=== PATIENT | female | born 1965 | race Asian ===

== ENCOUNTER 2025-04-04 21:32 | Inpatient (IN) ==
[2025-04-04 22:20] LABS: Hematocrit (blood only) 35.9 % (37.0-47.0); Hemoglobin 11.9 g/dl (12.0-16.0); Immature Granulocytes # (auto) 0.03 K/uL (0.01-0.20); Immature Granulocytes % (auto) 0.4 %; Mean Corpuscular Hemoglobin 29.5 pg (25.0-34.0); Mean Corpuscular Volume 88.9 fL (80.0-100.0); Platelet Count 115 K/uL (130-400); RDW Standard Deviation 44.0 fL (36.4-46.3); Red Blood Count 4.04 M/uL (4.20-5.40); White Blood Count 6.77 K/ul (4.8-10.8)
--- NOTE | 2025-04-04 22:31 | Emergency Department Note ---
Impression & Plan Abdominal pain, Fever, Mass of cecum, Nausea & vomiting ED Provider Note HISTORY OF PRESENT ILLNESS: Patient is a 59-year-old female presenting with abdominal pain. Patient's son acts as riprap placing supervisor via [employer] video. Attempted to set up formal riprap placing supervisor but was unable to connect to 1 and son felt comfortable translating. Reports that his mother has been having abdominal pain for the last month. She has been taking ibuprofen with little relief in her symptoms. Son reports that in the last week the patient's abdominal pain has gotten significantly worse. Locates the pain to her lower abdomen. She has been having nausea and vomiting. Has also had 2 weeks worth of diarrhea. No reported recent antibiotic use. No fevers at home. She is not had any ibuprofen today. She has never had surgery on her abdomen. She takes no daily medications. No known medication allergies. She is currently rating her pain a 7 out of 10 and locates it to the lower abdomen. Denies any dysuria or hematuria. She describes the abdominal pain as constant and sharp. Denies any alleviating or exacerbating factors. She reportedly has had a decreased appetite secondary to her symptoms in the last month. ROS: as above PHYSICAL EXAM: Constitutional: Patient appears in no acute distress. HENT: Head: Normocephalic and atraumatic. Eyes: EOMI, PERRL Mouth/Throat: Mucous membranes moist. Neck: Trachea midline. Neck supple. Cardiovascular: RRR, No murmurs, rubs or gallops. Intact distal pulses. Pulmonary/Chest: No respiratory distress. Breath sounds clear and equal bilaterally. No wheezes or rales. Abdominal: Abdomen soft, no rebound or guarding. Diffuse TTP Musculoskeletal: No edema, tenderness or deformity noted. Skin: Warm and dry. No rash, erythema, pallor or cyanosis Psychiatric: Appropriate mood and affect for situation. Neurological: Alert and keenly responsive. CN II-XII grossly intact, moving all extremities equally and fully. MDM: - Vitals signs showed fever and tachycardia - History obtained via patient and patient's son, given patient's primary language is Mandarin. History as above. - Chronic conditions affecting care: None - Differential diagnoses include, but are not limited to: Appendicitis; diverticulitis; colitis; bowel obstruction; UTI; ureteral stone - Order placed for continuous cardiac monitoring. At this time, monitor showed rate of 100 bpm with normal sinus rhythm, per my interpretation. - External medical records reviewed. - Laboratory workup interpreted by myself showed normal WBC; anemia (Hgb 11.9); thrombocytopenia (plt 115); elevated INR (1.2); normal lactate; slight hyponatremia (Na 133); hypocalcemia (Ca 8.5); normal lipase; normal AST/ALT - Viral respiratory panel negative - UA negative for infection - Patient given 1L NS, 4 mg IV zofran and 1g IV tylenol in ER. - CT abdomen/pelvis with IV contrast showed diffuse severe right colon wall thickening with surrounding infiltration and a masslike soft tissue density in the medial aspect of the cecum. Noted to have diffuse ascites and extensive abdominal mesenteric and retroperitoneal lymphadenopathy. Findings suspicious for right colon/cecal neoplasm versus severe colitis. Appendix was visualized and without acute appendicitis. - Given patient's fever and unknown source, procalcitonin and blood cultures added to workup - Discussed results with patient, her son via telephone and the formal [employer] riprap placing supervisor via iPad. Discussed the CT findings with the patient. She reports her last colonoscopy was over a decade ago in [place] and did not show any acute abnormalities. She reports her nausea is slightly improved but she is still feeling nauseous and her pain though slightly improved is still present. - IV zosyn added for empiric antibiotic therapy - General surgery consulted. Recommended GI consultation - Discussion was had with case resource manager about patient's case and need for admission - Hospitalist, Dr. Hummel, consulted for admission at 00:36. - Patient admitted to [facility] service for further evaluation and management. ASSESSMENT AND PLAN: Diagnosis: Abdominal pain; nausea and vomiting; fever; mass of cecum Plan: admit Past Med/Surg History Problem List (Updated 04/05/25 @ 00:37 by Payton Sullivan MD) Nausea & vomiting (Acute) Mass of cecum (Acute) Fever (Acute) Abdominal pain (Acute) Social History Smoking Status: Never smoker Preferred Language: Mandarin [place] African Communication Tools: IPad Feels Safe at Home: Yes Allergies Allergies Allergy/AdvReac Type Severity Reaction Status Date / Time No Known Allergies Allergy Unverified 04/04/25 22:40 Results & Data (ED) Vital Signs Vital Signs - 24 hr 04/04/25 21:38 04/04/25 21:50 04/04/25 21:56 Temperature 37.9 C H Temperature Source Oral Pulse Rate 100 H 100 H Pulse Rate [Apical] 96 H Pulse Rhythm [Apical] Regular Pulse Strength [Apical] Normal Respiratory Rate 18 16 Respiratory Effort / Characteristics Non-Labored Spontaneous Non-Labored Respiratory Depth Normal Normal Respiratory Pattern Regular Regular Blood Pressure 118/80 Blood Pressure Mean 92 Blood Pressure Position Sitting Blood Pressure Position [Right Arm] Lying Pulse Oximetry 97 97 Oxygen Delivery Method Room Air Room Air Sepsis Recent Fever Within 48 Hours Yes Sepsis New/Unexplained Change in Mental Status N/A Sepsis Action Taken by Nursing No Action Required Laboratory Data 04/04/25 22:03 04/04/25 22:03 Lab Results 04/04/25 04/04/25 04/04/25 Range/Units 21:49 22:03 22:47 WBC 6.77 (4.8-10.8) K/ul RBC 4.04 L (4.20-5.40) M/uL Hgb 11.9 L (12.0-16.0) g/dl Hct 35.9 L (37.0-47.0) % MCV 88.9 (80.0-100.0) fL MCH 29.5 (25.0-34.0) pg MCHC 33.1 (32.0-36.0) g/dL RDW Std Deviation 44.0 (36.4-46.3) fL RDW Coeff of Albertina 13.5 (11.5-14.5) % Plt Count 115 L (130-400) K/uL MPV 10.0 (9.4-12.4) fL Immature Gran % (Auto) 0.4 % Neut % (Auto) 64.6 % Lymph % (Auto) 15.5 % [place] % (Auto) 19.1 % Eos % (Auto) 0.1 % Baso % (Auto) 0.3 % Neut # (Auto) 4.37 (1.40-6.50) K/uL Lymph # (Auto) 1.05 L (1.20-3.40) K/uL [place] # (Auto) 1.29 H (0.11-0.59) K/uL Eos # (Auto) 0.01 (0.00-0.50) K/uL Baso # (Auto) 0.02 (0.00-0.20) K/uL Immature Gran # (Auto) 0.03 (0.01-0.20) K/uL PT 12.2 H (9.0-12.0) Seconds INR 1.2 H (0.9-1.1) Sodium 133 L (136-145) mmol/L Potassium 4.0 (3.5-5.1) mmol/L Chloride 103 (98-107) mmol/L Carbon Dioxide 21 (21-32) mmol/L Anion Gap 9 (3-11) BUN 15 (6-23) mg/dl Creatinine 0.73 (0.6-1.2) mg/dl Est Cr Clr Drug Dosing 69.5 ml/min eGFR 95.27 BUN/Creatinine Ratio 20.5 H (10-20) Glucose 133 H (70-99(Fasting)) mg/dl Lactate 1.4 (0.4-2.0) mmol/L Calcium 8.5 L (8.6-10.3) mg/dl Total Bilirubin 0.6 (0.2-1.0) mg/dl AST 34 (13-39) U/L ALT 17 (7-52) U/L Alkaline Phosphatase 65 (34-104) U/L Total Protein 6.5 (6.0-8.3) gm/dl Albumin 3.6 (3.4-5.0) gm/dl Globulin 2.9 (2.5-4.0) gm/dl Albumin/Globulin Ratio 1.2 (0.9-2) Lipase 10 L (11-82) U/L Urine Color Yellow Urine Appearance Clear (Clear) Urine pH 7.0 (4.5-7.5) Ur Specific [place] 1.020 (1.000-1.030) Urine Protein 1+ H (Negative) Urine Glucose (UA) Negative (Negative) Urine Ketones 1+ H (Negative) Urine Blood 3+ H (Negative) Urine Nitrite Negative (Negative) Urine Bilirubin 1+ H (Negative) Urine Urobilinogen Negative (Negative) Ur Leukocyte Esterase Negative (Negative) Urine RBC 0-2 (0-2) /hpf Urine WBC 0-5 (0-5) /hpf Ur Epithelial Cells 0-2 (0-2) /hpf Urine Bacteria 1+ H (None Seen) Urine Mucus Present A (None Prsent) Urine Comment Adenovirus (PCR) Not Detected (NotDetected) B. pertussis DNA (PCR) Not Detected (NotDetected) B.parapertussis DNA PCR Not Detected (NotDetected) C. pneumoniae DNA (PCR) Not Detected (NotDetected) Coronavirus OC43 (PCR) Not Detected (NotDetected) Coronavirus HKU1 (PCR) Not Detected (NotDetected) Coronavirus 229E (PCR) Not Detected (NotDetected) SARS-CoV-2 (PCR) Not Detected (NotDetected) Coronavirus NL63 (PCR) Not Detected (NotDetected) Human Metapneumovir PCR Not Detected (NotDetected) Influenza Type A (PCR) Not Detected (NotDetected) Influenza Type B (PCR) Not Detected (NotDetected) M. pneumoniae (PCR) Not Detected (NotDetected) Parainfluenza 1 (PCR) Not Detected (NotDetected) Parainfluenza 2 (PCR) Not Detected (NotDetected) Parainfluenza 3 (PCR) Not Detected (NotDetected) Parainfluenza 4 (PCR) Not Detected (NotDetected) RSV (PCR) Not Detected (NotDetected) Entero/Rhino (PCR) Not Detected (NotDetected) Administered Medications Discontinued Medications Sodium Chloride (Nss) 1,000 mls @ 999 mls/hr IV .Q1H1M ONE Stop: 04/04/25 23:22 Last Infusion: 04/05/25 00:18 Dose: Infused Documented By: Admin: 04/04/25 22:32 Dose: 999 mls/hr Documented By: lakeshia Acetaminophen (Ofirmev) 1,000 mg in 100 mls @ 400 mls/hr IV NOW STA Stop: 04/04/25 22:36 Last Infusion: 04/04/25 22:53 Dose: Infused Documented By: lakeshia Admin: 04/04/25 22:33 Dose: 400 mls/hr Documented By: lakeshia Ioversol (Optiray 320 100ml) 93 ml IV ONCE ONE Stop: 04/04/25 23:05 Last Admin: 04/04/25 23:04 Dose: 93 ml Documented By: SOPHIE Ondansetron HCl (Ondansetron Inj 2 Mg/Ml 2 Ml Vial) 4 mg IV NOW STA Stop: 04/04/25 22:23 Last Admin: 04/04/25 22:33 Dose: 4 mg Documented By: r Imaging Data Radiologist's Impression: Abdomen/Pelvis CT 04/04/25 22:22 Exam(s): CT ABDOMEN + PELVIS With Contrast IV Amt: 93 cc opti 320 EXAM: CT Abdomen and Pelvis With Intravenous Contrast CLINICAL HISTORY: abd pain; fevers. TECHNIQUE: Axial computed tomography images of the abdomen and pelvis with intravenous contrast. CTDI is 8.36 mGy and DLP is 395.3 mGy-cm. Automated exposure control was utilized for the study. A dose lowering technique was utilized adhering to the principles of ALARA. CONTRAST: Patient received 93 cc opti 320 of IV contrast COMPARISON: No relevant prior studies available. FINDINGS: Lung bases: Unremarkable. No mass. No consolidation. ABDOMEN: Liver: Unremarkable. No mass. Gallbladder and bile ducts: Unremarkable. No calcified stones. No ductal dilation. Pancreas: Unremarkable. No mass. No ductal dilation. Spleen: Unremarkable. No splenomegaly. Adrenals: Unremarkable. No mass. Kidneys and ureters: No obstructive uropathy. No obstructing renal or ureteral calculi. No hydronephrosis or hydroureter. Stomach and bowel: Mild diffuse abdominal and moderate pelvic free fluid. No free intraperitoneal gas. Air-fluid levels in top-normal caliber small bowel. Distal small bowel wall thickening. Right lower quadrant distal small bowel marked wall thickening versus mesenteric mass 2.4 x 2.8 cm. Ill-defined right colon with diffuse transverse, left and sigmoid colon are normal in caliber. Marked wall thickening and a focal masslike soft tissue density at the medial aspect of the cecum 5.9 x 5 x 3.9 cm. Mild surrounding infiltration. Probable appendix is identified and is normal in appearance. No evidence for diverticulitis. PELVIS: Appendix: No findings to suggest acute appendicitis. Bladder: Unremarkable. No mass. Reproductive: Uterus is identified. Ovaries are not distinctly visualized. ABDOMEN and PELVIS: Bones/joints: No acute fracture. Degenerative changes of the spine. Soft tissues: Unremarkable. Vasculature: Atherosclerotic vascular calcifications. No abdominal aortic aneurysm. Lymph nodes: Abdominal periaortic/retroperitoneal lymphadenopathy up to 1.7 x 1.8 cm. Mesenteric lymphadenopathy greatest in the right lower quadrant with the above-described possible ollie mass versus other soft tissue mass. IMPRESSION: Diffuse severe right colon wall thickening with surrounding infiltration. Masslike soft tissue density in the medial aspect of the cecum. Diffuse ascites. Extensive predominantly abdominal mesenteric and retroperitoneal lymphadenopathy. Findings are suspicious for a right colon/cecal neoplasm occluding a carcinoma or lymphoma versus severe colitis. Appendix is identified and is without evidence for acute appendicitis. Electronically signed by: Florian Cronin M.D. 04/05/25 00:01 AM Discharge Plan Visit Data Chief Complaint: Abdominal Pain Stated Complaint: ABDOMINAL PAIN ED Provider: Payton Sullivan Discharge Problem: Abdominal pain, Fever, Mass of cecum, Nausea & vomiting Condition: Fair Forms Stand Alone Forms: [facility] Referrals Referrals: PCP,NO [Primary Care Provider] -
[2025-04-04] MEDS: SODIUM CHLORIDE 0.9% 1,000 ML IV ONE (22:32)
[2025-04-04] MEDS: ONDANSETRON INJ 2 MG/ML 2 ML VIAL IV STA (22:33)
[2025-04-04] MEDS: ACETAMINOPHEN 1,000 MG/100 ML VIAL IV STA (22:33)
[2025-04-04 22:34] LABS: Alanine Aminotransferase 17.0 U/L (7-52); Albumin Globulin Ratio 1.2 (0.9-2); Albumin Level 3.6 gm/dl (3.4-5.0); Alkaline Phosphatase 65.0 U/L (34-104); Anion Gap 9.0 (3-11); Bilirubin,Total 0.6 mg/dl (0.2-1.0); Blood Urea Nitrogen 15.0 mg/dl (6-23); Calcium 8.5 mg/dl (8.6-10.3); Carbon Dioxide 21.0 mmol/L (21-32); Chloride 103.0 mmol/L (98-107); Creatinine Clr Calc Pharmacy 69.5 ml/min; Globulin 2.9 gm/dl (2.5-4.0); Glucose 133.0 mg/dl (70-99(Fasting)); Lipase 10.0 U/L (11-82); Potassium 4.0 mmol/L (3.5-5.1); Sodium 133.0 mmol/L (136-145); Total Protein 6.5 gm/dl (6.0-8.3)
[2025-04-04 22:43] LABS: INR 1.2 (0.9-1.1); Prothrombin Time 12.2 Seconds (9.0-12.0)
[2025-04-04 23:02] LABS: Appearance Urine Clear (Clear); Glucose Urine UA Negative (Negative)
[2025-04-04] MEDS: OPTIRAY 320 100ml IV ONE (23:04)
[2025-04-04 23:39] LABS: Epithelial Cell Urine 0-2 /hpf (0-2)
[2025-04-04 23:44] LABS: Chlamydia pneumoniae PCR Not Detected (NotDetected); Coronavirus 229E PCR Not Detected (NotDetected); Coronavirus CoV-2 (COVID19)PCR Not Detected (NotDetected); Coronavirus HKU1 PCR Not Detected (NotDetected); Coronavirus NL63 PCR Not Detected (NotDetected); Coronavirus OC43PCR Not Detected (NotDetected); Human Metapneumovirus PCR Not Detected (NotDetected); Parainfluenza Virus 1 PCR Not Detected (NotDetected); Parainfluenza Virus 2 PCR Not Detected (NotDetected); Parainfluenza Virus 3 PCR Not Detected (NotDetected); Parainfluenza Virus 4 PCR Not Detected (NotDetected); Respiratory Syncytial VirusPCR Not Detected (NotDetected); Rhinovirus/Enterovirus PCR Not Detected (NotDetected)
--- NOTE | 2025-04-05 00:02 | CT Scan Report ---
Exam(s): CT ABDOMEN + PELVIS With Contrast IV Amt: 93 cc opti 320 EXAM: CT Abdomen and Pelvis With Intravenous Contrast CLINICAL HISTORY: abd pain; fevers. TECHNIQUE: Axial computed tomography images of the abdomen and pelvis with intravenous contrast. CTDI is 8.36 mGy and DLP is 395.3 mGy-cm. Automated exposure control was utilized for the study. A dose lowering technique was utilized adhering to the principles of ALARA. CONTRAST: Patient received 93 cc opti 320 of IV contrast COMPARISON: No relevant prior studies available. FINDINGS: Lung bases: Unremarkable. No mass. No consolidation. ABDOMEN: Liver: Unremarkable. No mass. Gallbladder and bile ducts: Unremarkable. No calcified stones. No ductal dilation. Pancreas: Unremarkable. No mass. No ductal dilation. Spleen: Unremarkable. No splenomegaly. Adrenals: Unremarkable. No mass. Kidneys and ureters: No obstructive uropathy. No obstructing renal or ureteral calculi. No hydronephrosis or hydroureter. Stomach and bowel: Mild diffuse abdominal and moderate pelvic free fluid. No free intraperitoneal gas. Air-fluid levels in top-normal caliber small bowel. Distal small bowel wall thickening. Right lower quadrant distal small bowel marked wall thickening versus mesenteric mass 2.4 x 2.8 cm. Ill-defined right colon with diffuse transverse, left and sigmoid colon are normal in caliber. Marked wall thickening and a focal masslike soft tissue density at the medial aspect of the cecum 5.9 x 5 x 3.9 cm. Mild surrounding infiltration. Probable appendix is identified and is normal in appearance. No evidence for diverticulitis. PELVIS: Appendix: No findings to suggest acute appendicitis. Bladder: Unremarkable. No mass. Reproductive: Uterus is identified. Ovaries are not distinctly visualized. ABDOMEN and PELVIS: Bones/joints: No acute fracture. Degenerative changes of the spine. Soft tissues: Unremarkable. Vasculature: Atherosclerotic vascular calcifications. No abdominal aortic aneurysm. Lymph nodes: Abdominal periaortic/retroperitoneal lymphadenopathy up to 1.7 x 1.8 cm. Mesenteric lymphadenopathy greatest in the right lower quadrant with the above-described possible ollie mass versus other soft tissue mass. IMPRESSION: Diffuse severe right colon wall thickening with surrounding infiltration. Masslike soft tissue density in the medial aspect of the cecum. Diffuse ascites. Extensive predominantly abdominal mesenteric and retroperitoneal lymphadenopathy. Findings are suspicious for a right colon/cecal neoplasm occluding a carcinoma or lymphoma versus severe colitis. Appendix is identified and is without evidence for acute appendicitis. Electronically signed by: Florian Cronin M.D. 04/05/25 00:01 AM
--- NOTE | 2025-04-05 00:39 | Surgery Consultation ---
Date of Consultation April 05, 2025 Assessment & Plan (1) Mass of cecum: The patient is going to be admitted on the hospitalist service. From a surgical perspective the following is recommended: There is concern the patient has an underlying cecal mass Prior to entertaining any surgical excision/intervention I feel would be best that the patient was evaluated by gastroenterology as she has not had a colonoscopy in excess of 10 years. Will be preferable to have a full evaluation of her entire colon prior to undergoing any consideration of surgery There is also been no definite source of her fever identified. Blood cultures have been ordered and we will follow-up for the results of these It may be beneficial to check a CEA level Will continue to follow along with the patient and await recommendations from gastroenterology Additional recommendations will be forthcoming based on her clinical course " Supervising Physician Co-Signing Physician Notes Patient discussed with John Peraza, labs and imaging reviewed, agree with above. CT scan shows cecal mass with lymphadenopathy and some free pelvic fluid. CEA normal. WBC normal. Would recommend colonoscopy by GI, further workup as indicated. Would consider resection as an inpatient or as an outpatient if necessary. Surgery will follow peripherally, call with questions or concerns History of Present Illness Reason for Consultation: Possible cecal mass History of Present Illness This is a 59-year-old female who presented the emergency department secondary to abdominal pain It should be noted that this patient is [place] and only speaks Mandarin. I did utilize a translation service during my interview/examination with the patient. As noted she presented to the emergency department secondary to abdominal pain that has present for approximately 1 month. She notes that the pain is nonradiating but located in the right lower quadrant without modifying factors. In addition the patient has been having fevers. The patient notes that she has no family history of colon cancer to the best of her knowledge. She is a non- smoker. She has not noticed any recent weight loss. She does report that she had a colonoscopy but it has been greater than 10 years ago and this was performed in [place] but to the best of her knowledge was normal. She does not offer any other complaints at this time. Since arrival to the emergency department she has had labs and imaging which had been reviewed. A CT scan of the abdomen pelvis shows the patient has thickening of the right colonic wall with surrounding infiltration. There is also noted masslike soft tissue density in the medial aspect of the cecum and there is diffuse ascites noted. There is abdominal mesenteric and retroperitoneal lymphadenopathy and the interpreting radiologist felt that these findings were suspicious for a colon or cecal neoplasm. There is no evidence of appendicitis on this study. Labs included CBC white blood cell count was normal. Her hemoglobin and hematocrit are 11.9 and 35.9. Platelet count was 1 15,000. Coagulation studies showed an INR of 1.2. Chemistry profile showed sodium is 133 with a normal potassium. BUN and creatinine were also normal. Lactic acid level was nonelevated at 1.4. There is no elevation of her LFTs or lipase. Urinalysis does not show any evidence of infection other than 1+ bacteria. Patient did have a respiratory bio fire study tested and everything was negative. At the time of my interview she was resting comfortably in bed and she was in no distress. Concerning medication allergies the patient denies any medicine allergies The patient reports that she does not take any medications as an outpatient I asked patient if she had any chronic medical condition her past medical history which she denies The patient reports that she has never had surgery Concerning social history the patient reports that she is a non-smoker Concerning family history she denies family history of colon cancer Allergies Allergy/AdvReac Type Severity Reaction Status Date / Time No Known Allergies Allergy Unverified 04/04/25 22:40 Patient History Social History Smoking Status: Never smoker Hx Alcohol Use: No Hx Substance Use: No Preferred Language: Mandarin [place]an Communication Ability: Effective Communication Tools: IPad Rice Dryer Mechanic Required: Yes and Video Beliefs That Will Affect Care: None Current Living Situation: Spouse Other Information That Helps Us Care for You: No Feels Safe at Home: Yes Safety Concerns: Feels Safe At This Time Assistive Devices: None Review of Systems Review of Systems: All systems reviewed & are unremarkable except as noted in HPI & below Physical Exam Constitutional: WD/WN, vitals as above Eyes: no conjunctival abnormality ENMT: Ears: no hearing impairment and no external ear abnormality Mouth: no oropharynx abnormality Neck: trachea midline Respiratory: normal respiratory effort; no respiratory distress and no labored breathing Cardiovascular: Rate/Rhythm: regular rate and regular rhythm Gastrointestinal (Abdomen): Abdomen is soft without distention or rigidity. There is no rebound tenderness or guarding. Patient did have pain with palpation in the right lower quadrant Musculoskeletal: No calf tenderness Skin: no rashes Neurologic: moves all extremities Psychiatric: A+Ox3, euthymic affect Results & Data Vital Signs (Past 12 Hours) Vital Signs Temp Pulse Pulse Resp BP Pulse Ox O2 Del Method 04/04/25 21:56 100 H 04/04/25 21:50 96 H 16 97 Room Air 04/04/25 21:38 37.9 C H 100 H 18 118/80 97 Room Air PG Care Time/CCT Total # of Minutes Spent Total Time Spent with Patient: Total time spent is greater than 50% in coordination of care (as documented) at patient's floor/unit and/or counseling patient: Coding Level of Care Code 30161 IN/OBS CONSULT LVL 5,80M Diagnoses Mass of cecum K63.89
--- NOTE | 2025-04-05 00:40 | History & Physical Report ---
Date of Service April 05, 2025 Assessment & Plan (1) Abdominal pain: Plan: Assessment and plan below following discussion of case with ED provider and reviewing patient history/pertinent normal/abnormal diagnostic test results. Abdominal pain Multifactorial: Ascites with fever possible SBP, possible sepsis Right cecal mass possible malignancy New onset anemia, possibly from occult GI bleed from right cecal mass Hyperglycemia rule out DM Admit to medical unit CS Ceftriaxone and albumin for possible SBP Diagnostic and therapeutic paracentesis CEA and LDH with a.m. labs GI consult re: ascites, right cecal mass Clear liquid diet for now Anemia workup Check hemoglobin A1c DVT prophylaxis. SCDs Re: Possible GI bleed Full code Patient son requesting updates providers. Mr. Mike Cat ([place]), contact #[phone]. Text document was generated using [employer] voice recognition software. It may contain grammatical or spelling errors. Kindly contact undersigned for clarification of any documentation item in question. History of Present Illness Chief Complaint: Worsening abdominal pain Primary Care Provider: NO PCP History obtained from patient, family, and records. Limited history from patient secondary to language barrier. No significant medical history. 1 month history of achy lower abdominal discomfort. Some nausea symptoms. No black/bloody stools. Poor appetite without weight loss. Intermittent relief of [id number] NSAID. In the last 2 weeks, patient noted increased abdominal distention associated with intermittent fever, chills with some night sweats following NSAID Rx. Patient brought to ER for evaluation by family for worsening symptoms. Medical History as above Last colonoscopy was in [place] more than 10 years ago as per family ("possible pockets") Surgical History : None Family History : No DM, no heart disease, no stroke no colon cancer, no lymphoma Personal/Social history : Non-smoker, no EtOH intake, businesswoman Allergies Allergy/AdvReac Type Severity Reaction Status Date / Time No Known Allergies Allergy Unverified 04/04/25 22:40 Past Med/Surg History Problem List (Updated 04/05/25 @ 00:37 by Payton Sullivan MD) Nausea & vomiting (Acute) Mass of cecum (Acute) Fever (Acute) Abdominal pain (Acute) Social History Smoking Status: Never smoker Hx Alcohol Use: No Hx Substance Use: No Preferred Language: Mandarin Dutch Communication Ability: Effective Communication Tools: IPad Metal Buffer Required: Yes and Video Beliefs That Will Affect Care: None Current Living Situation: Spouse Other Information That Helps Us Care for You: No Feels Safe at Home: Yes Safety Concerns: Feels Safe At This Time Assistive Devices: None Review of Systems Review of Systems: As per HPI, all other systems reviewed and negative Physical Exam Physical Exam: GENERAL: Comfortable, pleasant, no respiratory distress SKIN: Normal color, warm HEENT: [place] palpebral conjunctivae, no ptosis, dry buccal mucosa NECK : Supple, no tenderness CHEST : CTA, no tenderness HEART : RRR, no obvious murmurs ABDOMEN: Some distention, hypogastric tenderness EXTREMITIES : No LE swelling/tenderness, palpable pulses, no other conspicuous deformities noted NEUROLOGIC : Coherent, no facial asymmetry, no other gross focality Results & Data Results & Data Vital Signs (Past 12 Hours) Vital Signs Temp Pulse Pulse Resp BP Pulse Ox O2 Del Method 04/04/25 21:56 100 H 04/04/25 21:50 96 H 16 97 Room Air 04/04/25 21:38 37.9 C H 100 H 18 118/80 97 Room Air Laboratory Results Laboratory Results WBC 6.77 K/ul (4.8-10.8) 04/04/25 22:03 RBC 4.04 M/uL (4.20-5.40) L 04/04/25 22:03 Hgb 11.9 g/dl (12.0-16.0) L 04/04/25 22:03 Hct 35.9 % (37.0-47.0) L 04/04/25 22:03 MCV 88.9 fL (80.0-100.0) 04/04/25 22:03 MCH 29.5 pg (25.0-34.0) 04/04/25 22:03 MCHC 33.1 g/dL (32.0-36.0) 04/04/25 22:03 RDW Std Deviation 44.0 fL (36.4-46.3) 04/04/25 22:03 RDW Coeff of [place] 13.5 % (11.5-14.5) 04/04/25 22:03 Plt Count 115 K/uL (130-400) L 04/04/25 22:03 MPV 10.0 fL (9.4-12.4) 04/04/25 22:03 Immature Gran % (Auto) 0.4 % 04/04/25 22:03 Neut % (Auto) 64.6 % 04/04/25 22:03 Lymph % (Auto) 15.5 % 04/04/25 22:03 [place] % (Auto) 19.1 % 04/04/25 22:03 Eos % (Auto) 0.1 % 04/04/25 22:03 Baso % (Auto) 0.3 % 04/04/25 22:03 Neut # (Auto) 4.37 K/uL (1.40-6.50) 04/04/25 22:03 Lymph # (Auto) 1.05 K/uL (1.20-3.40) L 04/04/25 22:03 [place] # (Auto) 1.29 K/uL (0.11-0.59) H 04/04/25 22:03 Eos # (Auto) 0.01 K/uL (0.00-0.50) 04/04/25 22:03 Baso # (Auto) 0.02 K/uL (0.00-0.20) 04/04/25 22:03 Immature Gran # (Auto) 0.03 K/uL (0.01-0.20) 04/04/25 22:03 PT 12.2 Seconds (9.0-12.0) H 04/04/25 22:03 INR 1.2 (0.9-1.1) H 04/04/25 22:03 Sodium 133 mmol/L (136-145) L 04/04/25 22:03 Potassium 4.0 mmol/L (3.5-5.1) 04/04/25 22:03 Chloride 103 mmol/L (98-107) 04/04/25 22:03 Carbon Dioxide 21 mmol/L (21-32) 04/04/25 22:03 Anion Gap 9 (3-11) 04/04/25 22:03 BUN 15 mg/dl (6-23) 04/04/25 22:03 Creatinine 0.73 mg/dl (0.6-1.2) 04/04/25 22:03 Est Cr Clr Drug Dosing 69.5 ml/min 04/04/25 22:03 eGFR 95.27 04/04/25 22:03 BUN/Creatinine Ratio 20.5 (10-20) H 04/04/25 22:03 Glucose 133 mg/dl (70-99(Fasting)) H 04/04/25 22:03 Lactate 1.4 mmol/L (0.4-2.0) 04/04/25 22:47 Calcium 8.5 mg/dl (8.6-10.3) L 04/04/25 22:03 Total Bilirubin 0.6 mg/dl (0.2-1.0) 04/04/25 22:03 AST 34 U/L (13-39) 04/04/25 22:03 ALT 17 U/L (7-52) 04/04/25 22:03 Alkaline Phosphatase 65 U/L (34-104) 04/04/25 22:03 Total Protein 6.5 gm/dl (6.0-8.3) 04/04/25 22:03 Albumin 3.6 gm/dl (3.4-5.0) 04/04/25 22:03 Globulin 2.9 gm/dl (2.5-4.0) 04/04/25 22:03 Albumin/Globulin Ratio 1.2 (0.9-2) 04/04/25 22:03 Lipase 10 U/L (11-82) L 04/04/25 22:03 Urine Color Yellow 04/04/25 21:49 Urine Appearance Clear (Clear) 04/04/25 21:49 Urine pH 7.0 (4.5-7.5) 04/04/25 21:49 Ur Specific [place] 1.020 (1.000-1.030) 04/04/25 21:49 Urine Protein 1+ (Negative) H 04/04/25 21:49 Urine Glucose (UA) Negative (Negative) 04/04/25 21:49 Urine Ketones 1+ (Negative) H 04/04/25 21:49 Urine Blood 3+ (Negative) H 04/04/25 21:49 Urine Nitrite Negative (Negative) 04/04/25 21:49 Urine Bilirubin 1+ (Negative) H 04/04/25 21:49 Urine Urobilinogen Negative (Negative) 04/04/25 21:49 Ur Leukocyte Esterase Negative (Negative) 04/04/25 21:49 Urine RBC 0-2 /hpf (0-2) 04/04/25 21:49 Urine WBC 0-5 /hpf (0-5) 04/04/25 21:49 Ur Epithelial Cells 0-2 /hpf (0-2) 04/04/25 21:49 Urine Bacteria 1+ (None Seen) H 04/04/25 21:49 Urine Mucus Present (None Prsent) A 04/04/25 21:49 Urine Comment 04/04/25 21:49 Adenovirus (PCR) Not Detected (NotDetected) 04/04/25 22:47 B. pertussis DNA (PCR) Not Detected (NotDetected) 04/04/25 22:47 B.parapertussis DNA PCR Not Detected (NotDetected) 04/04/25 22:47 C. pneumoniae DNA (PCR) Not Detected (NotDetected) 04/04/25 22:47 Coronavirus OC43 (PCR) Not Detected (NotDetected) 04/04/25 22:47 Coronavirus HKU1 (PCR) Not Detected (NotDetected) 04/04/25 22:47 Coronavirus 229E (PCR) Not Detected (NotDetected) 04/04/25 22:47 SARS-CoV-2 (PCR) Not Detected (NotDetected) 04/04/25 22:47 Coronavirus NL63 (PCR) Not Detected (NotDetected) 04/04/25 22:47 Human Metapneumovir PCR Not Detected (NotDetected) 04/04/25 22:47 Influenza Type A (PCR) Not Detected (NotDetected) 04/04/25 22:47 Influenza Type B (PCR) Not Detected (NotDetected) 04/04/25 22:47 M. pneumoniae (PCR) Not Detected (NotDetected) 04/04/25 22:47 Parainfluenza 1 (PCR) Not Detected (NotDetected) 04/04/25 22:47 Parainfluenza 2 (PCR) Not Detected (NotDetected) 04/04/25 22:47 Parainfluenza 3 (PCR) Not Detected (NotDetected) 04/04/25 22:47 Parainfluenza 4 (PCR) Not Detected (NotDetected) 04/04/25 22:47 RSV (PCR) Not Detected (NotDetected) 04/04/25 22:47 Entero/Rhino (PCR) Not Detected (NotDetected) 04/04/25 22:47 Impressions Abdomen/Pelvis CT 04/04/25 22:22 Exam(s): CT ABDOMEN + PELVIS With Contrast IV Amt: 93 cc opti 320 EXAM: CT Abdomen and Pelvis With Intravenous Contrast CLINICAL HISTORY: abd pain; fevers. TECHNIQUE: Axial computed tomography images of the abdomen and pelvis with intravenous contrast. CTDI is 8.36 mGy and DLP is 395.3 mGy-cm. Automated exposure control was utilized for the study. A dose lowering technique was utilized adhering to the principles of ALARA. CONTRAST: Patient received 93 cc opti 320 of IV contrast COMPARISON: No relevant prior studies available. FINDINGS: Lung bases: Unremarkable. No mass. No consolidation. ABDOMEN: Liver: Unremarkable. No mass. Gallbladder and bile ducts: Unremarkable. No calcified stones. No ductal dilation. Pancreas: Unremarkable. No mass. No ductal dilation. Spleen: Unremarkable. No splenomegaly. Adrenals: Unremarkable. No mass. Kidneys and ureters: No obstructive uropathy. No obstructing renal or ureteral calculi. No hydronephrosis or hydroureter. Stomach and bowel: Mild diffuse abdominal and moderate pelvic free fluid. No free intraperitoneal gas. Air-fluid levels in top-normal caliber small bowel. Distal small bowel wall thickening. Right lower quadrant distal small bowel marked wall thickening versus mesenteric mass 2.4 x 2.8 cm. Ill-defined right colon with diffuse transverse, left and sigmoid colon are normal in caliber. Marked wall thickening and a focal masslike soft tissue density at the medial aspect of the cecum 5.9 x 5 x 3.9 cm. Mild surrounding infiltration. Probable appendix is identified and is normal in appearance. No evidence for diverticulitis. PELVIS: Appendix: No findings to suggest acute appendicitis. Bladder: Unremarkable. No mass. Reproductive: Uterus is identified. Ovaries are not distinctly visualized. ABDOMEN and PELVIS: Bones/joints: No acute fracture. Degenerative changes of the spine. Soft tissues: Unremarkable. Vasculature: Atherosclerotic vascular calcifications. No abdominal aortic aneurysm. Lymph nodes: Abdominal periaortic/retroperitoneal lymphadenopathy up to 1.7 x 1.8 cm. Mesenteric lymphadenopathy greatest in the right lower quadrant with the above-described possible ollie mass versus other soft tissue mass. IMPRESSION: Diffuse severe right colon wall thickening with surrounding infiltration. Masslike soft tissue density in the medial aspect of the cecum. Diffuse ascites. Extensive predominantly abdominal mesenteric and retroperitoneal lymphadenopathy. Findings are suspicious for a right colon/cecal neoplasm occluding a carcinoma or lymphoma versus severe colitis. Appendix is identified and is without evidence for acute appendicitis. Electronically signed by: Florian Cronin M.D. 04/05/25 00:01 AM Diagnostic Findings Chest x-ray as per my interpretation no infiltrate no effusion
[2025-04-05 01:05] LABS: Magnesium 2.1 mg/dl (1.7-2.4)
[2025-04-05] MEDS: PIPERACILLIN/TAZOBACTAM 4.5 GM/100 ML BAG IV ONE (01:40)
--- NOTE | 2025-04-05 02:45 | XRay Report ---
EXAM: XR chest 1V portable CLINICAL HISTORY: Fever, hyponatremia. TECHNIQUE: An X-ray image of the chest was obtained in the AP projection. COMPARISON: No prior studies are available for comparison. FINDINGS: Pulmonary Parenchyma: The lungs are clear bilaterally. There is no evidence of consolidation, collapse, or focal opacities. No pulmonary nodules are identified. There is no evidence of pleural effusion or pleural thickening. Heart and Mediastinum: The heart size and shape are normal. There is no mediastinal widening or masses. No hilar or mediastinal lymphadenopathy is present. Bony Thorax: The bony thorax appears intact without fractures or deformities. Soft Tissues: The soft tissues overlying the chest wall are unremarkable. IMPRESSION: Normal chest X-ray. No acute cardiopulmonary abnormalities are identified. Electronically signed by Chris Mccall 04-05-2025 02:45 AM
[2025-04-05] MEDS: ALBUMIN 25% 25 GM/100 ML VIAL IV STA (03:02)
[2025-04-05 06:56] LABS: Hematocrit (blood only) 29.7 % (37.0-47.0); Hemoglobin 9.8 g/dl (12.0-16.0); Immature Granulocytes # (auto) 0.03 K/uL (0.01-0.20); Immature Granulocytes % (auto) 0.6 %; Mean Corpuscular Hemoglobin 29.6 pg (25.0-34.0); Mean Corpuscular Volume 89.7 fL (80.0-100.0); Platelet Count 105 K/uL (130-400); RDW Standard Deviation 45.5 fL (36.4-46.3); Red Blood Count 3.31 M/uL (4.20-5.40); Reticulocytes # 0.080 10^6/uL (0.020-0.100); White Blood Count 5.42 K/ul (4.8-10.8)
[2025-04-05 07:18] LABS: Anion Gap 6.0 (3-11); Blood Urea Nitrogen 11.0 mg/dl (6-23); Calcium 7.9 mg/dl (8.6-10.3); Carbon Dioxide 25.0 mmol/L (21-32); Chloride 108.0 mmol/L (98-107); Creatinine Clr Calc Pharmacy 72.5 ml/min; Glucose 107.0 mg/dl (70-99(Fasting)); Iron 16.0 mcg/dl (35-150); Potassium 3.7 mmol/L (3.5-5.1); Sodium 139.0 mmol/L (136-145); Transferrin 139.0 mg/dl (200-360)
[2025-04-05 07:20] LABS: Hemoglobin A1C 5.5 % (4.5-5.6)
[2025-04-05 07:33] LABS: Thyroid Stimulating Hormone 2.085 uIu/ml (0.300-4.500)
[2025-04-05 07:39] LABS: Ferritin 668.0 ng/ml (8-388)
[2025-04-05 07:43] LABS: Folate (Folic Acid),Ser orPlas > 22.30 ng/ml (>5.38)
[2025-04-05 07:44] LABS: Vitamin B12 477 pg/ml (180-914)
[2025-04-05] MEDS: cefTRIAXone SODIUM 2,000 MG/50 ML BAG IV SCH (09:31)
[2025-04-05] MEDS: PROMETHAZINE 6.25 MG/50.25 ML BAG IV PRN (10:13)
--- NOTE | 2025-04-05 11:37 | Hospitalist Progress Note ---
Date of Service April 05, 2025 Assessment & Plan (1) Abdominal pain: Plan: Cecal mass/Colitis --cannot rule out neoplasm Suspected malignant ascites R/O SBP --CT ABD: Diffuse severe right colon wall thickening with surrounding infiltration. Masslike soft tissue density in the medial aspect of the cecum. Diffuse ascites. Extensive predominantly abdominal mesenteric and retroperitoneal lymphadenopathy. Findings are suspicious for a right colon/cecal neoplasm occluding a carcinoma or lymphoma versus severe colitis. Appendix is identified and is without evidence for acute appendicitis. --CEA antigen 0.5 --Blood culture:pending IR paracentesis pending --Stool PCR, stool for C. difficile, FOBT pending Received IV fluids Pain control as needed Liquid diet for now Appreciate surgery input GI eval pending Iron deficiency anemia No acute bleeding issues FOBT pending Will start on iron supplements as able Abnormal UA Microscopic hematuria R/O UTI --Urine Culture is pending Empirically on Rocephin as above May need Urology eval as outpatient DVT Px: SCDs for now Code status Full code Family: Mr. Mike Cat ([place]), contact #[phone]. Admission and Anticipated Discharge Date Admission Date: April 05, 2025 Subjective Patient is seen and examined at bedside She is having abdominal pain associated nausea Had 1 loose nonbloody bowel movement today Denies any chest pain, dyspnea, weight loss Admits to have some loss of appetite for the past 1 month Review of Systems Review of Systems: All systems reviewed & are unremarkable except as noted in Subjective Physical Exam Physical Exam: Physical Exam: Vitals signs as noted above General Appearance:Moderately built and nourished, no apparent distress Head: normocephalic, Atraumatic Eyes: normal inspection, EOMI Neck: supple, Trachea midline Respiratory/Chest: Normal breath sounds, CTA, No accessory muscle use Cardiovascular: S1, S2, No murmur Abdomen/GI:Soft, tenderness epigastric, hypogastric, right lower quadrant and some upper quadrant, normal bowel sounds, no guarding or rigidity. Extremities/Musculoskeletal:normal inspection, no edema Neurologic/Psych:AAOX3, grossly no focal neurological deficits Skin: normal color, warm Results & Data Results & Data Vital Signs (Past 12 Hours) Vital Signs Temp Pulse Pulse Resp BP BP Pulse Ox 04/05/25 07:12 37.0 C 74 16 103/67 99 04/05/25 03:35 36.8 C 71 16 119/54 L 98 04/05/25 02:35 04/05/25 02:27 69 16 100/62 97 04/05/25 00:40 37.0 C 04/05/25 00:40 37.0 C 84 14 106/67 99 O2 Del Method 04/05/25 07:12 Room Air 04/05/25 03:35 Room Air 04/05/25 02:35 Room Air 04/05/25 02:27 Room Air 04/05/25 00:40 04/05/25 00:40 Room Air Laboratory Results Short CBC 04/04/25 04/05/25 Range/Units 22:03 06:33 WBC 6.77 5.42 (4.8-10.8) K/ul Hgb 11.9 L 9.8 L (12.0-16.0) g/dl Hct 35.9 L 29.7 L (37.0-47.0) % Plt Count 115 L 105 L (130-400) K/uL BMP 04/04/25 04/05/25 22:03 06:33 Sodium 133 L 139 Potassium 4.0 3.7 Chloride 103 108 H Carbon Dioxide 21 25 BUN 15 11 Creatinine 0.73 0.70 Glucose 133 H 107 H Calcium 8.5 L 7.9 L Liver Function 04/04/25 Range/Units 22:03 Total Bilirubin 0.6 (0.2-1.0) mg/dl AST 34 (13-39) U/L ALT 17 (7-52) U/L Alkaline Phosphatase 65 (34-104) U/L Albumin 3.6 (3.4-5.0) gm/dl Urine 04/04/25 Range/Units 21:49 Urine Color Yellow Urine Appearance Clear (Clear) Urine pH 7.0 (4.5-7.5) Ur Specific [place] 1.020 (1.000-1.030) Urine Protein 1+ H (Negative) Urine Glucose (UA) Negative (Negative)
[2025-04-05] MEDS: ALBUMIN 25% 25 GM/100 ML VIAL IV SCH (13:15)
--- NOTE | 2025-04-05 13:44 | Gastrointestinal Consultation ---
Date of Consultation April 05, 2025 Assessment & Plan (1) Mass of cecum: I would encourage to do diagnostic and therapeutic paracentesis and also send fluid for cytology. Primary team has started empiric IV antibiotics After ascites tap is done then proceed with colonoscopy later in the day tomorrow (2) Abdominal pain: Agree with paracentesis to first decompress the ascites and then proceed with colonoscopy we will start the prep process in the meantime History of Present Illness Reason for Consultation: Abnormal imaging, cecum mass Attending Physician: Keith Zheng MD History of Present Illness 59-year-old female mandrin speaking, patient's son and were present who translated and explained findings to the patient as well. She has been having abdominal pain which started off as mid abdominal pain and proceeded to have right lower quadrant and mid abdominal discomfort over the last 1 month or so. She also notices more bloating and constipation, denies blood in the stools, endorses having colonoscopy done 10+ years ago in [place] that was reportedly normal. No clear-cut family history is discernible. I explained to patient and family at length the procedure for bowel prep and proceeding with colonoscopy tomorrow to acquire tissue as the next step in her management. Allergies Allergy/AdvReac Type Severity Reaction Status Date / Time No Known Allergies Allergy Unverified 04/04/25 22:40 Patient History Social History Smoking Status: Never smoker Hx Alcohol Use: No Hx Substance Use: No Preferred Language: Mandarin Finnish Communication Ability: Effective Communication Tools: IPad Top Edge Beveler Required: Yes and Video Beliefs That Will Affect Care: None Current Living Situation: Spouse Other Information That Helps Us Care for You: No Feels Safe at Home: Yes Safety Concerns: Feels Safe At This Time Assistive Devices: None Review of Systems Review of Systems: Constitutional: No Weight Change, No Fever, No Chills, No Night Sweats, No Fatigue, No Malaise ENT/Mouth: No Hearing Changes, No Ear Pain, No Nasal Congestion, No Sinus Pain, No Hoarseness, No sore throat, No Rhinorrhea, No Swallowing Difficulty Eyes: No Eye Pain, No Swelling, No Redness, No Foreign Body, No Discharge, No Vision Changes Cardiovascular: No Chest Pain, No SOB, No PND, No Dyspnea on Exertion, No Orthopnea, No Claudication, No Edema, No Palpitations Respiratory: No Cough, No Sputum, No Wheezing, No Smoke Exposure, No Dyspnea Gastrointestinal: , No Diarrhea, + Constipation,+ bloating No Pain, No Heartburn, No Anorexia, No Dysphagia, No Hematochezia, No Melena, No Jaundice Genitourinary: No Dysmenorrhea, No DUB, No Dyspareunia, No Dysuria, No Urinary Frequency, No Hematuria, No Urinary Incontinence, No Urgency, No Flank Pain, No Urinary Flow Changes, No Hesitancy Musculoskeletal: No Arthralgias, No Myalgias, No Joint Swelling, No Joint Stiffness, No Back Pain, No Neck Pain, No Injury History Skin: No Skin Lesions, No Pruritis, No Hair Changes, No Breast/Skin Changes, No Nipple Discharge Neuro: No Weakness, No Numbness, No Paresthesias, No Loss of Consciousness, No Syncope, No Dizziness, No Headache, No Coordination Changes, No Recent Falls Psych: No Anxiety/Panic, No Depression, No Insomnia, No Personality Changes, No Delusions, No Rumination, No SI/HI/AH/VH, No Social Issues, No Memory Teressa nges, No Violence/Abuse Hx., No Eating Concerns Heme/Lymph: No Bruising, No Bleeding, No Transfusions History, No Lymphadenopathy Endocrine: No Polyuria, No Polydipsia, No Temperature Intolerance Physical Exam Physical Exam: VITALS: Reviewed. WEIGHT/BMI reviewed. GEN: Healthy appearing, well-developed, NAD. PSYCH: Good Judgment. AOx3. Normal memory, mood, and affect. HEENT -Head: NC/AT; -Eyes: PERRL, EOMI. No discharge or redn ess; -Ears: External ears are normal. Normal TMs. -Nose: Normal nares. -Mouth and throat: MMM. Normal gums, muc zeynep, palate,. Good dentition. NECK: Supple, with no masses. CV: RRR, no m/r/g. LUNGS: CTAB, no w/r/c. ABD: Soft, NT/ND, NBS, no masses or organomegaly. : N/A SKIN: Warm, well perfused. No skin rashes or abnormal lesions. MSK: No deformities, Normal gait. EXT: No clubbing, cyanosis, or edema. NEURO: Ambulating with no limitations. Normal muscle strength and tone. No focal deficits. Results & Data Vital Signs (Past 12 Hours) Vital Signs Temp Pulse Pulse Resp BP BP Pulse Ox 04/05/25 07:12 37.0 C 74 16 103/67 99 04/05/25 03:35 36.8 C 71 16 119/54 L 98 04/05/25 02:35 04/05/25 02:27 69 16 100/62 97 O2 Del Method 04/05/25 07:12 Room Air 04/05/25 03:35 Room Air 04/05/25 02:35 Room Air 04/05/25 02:27 Room Air Laboratory Results Abnormal Lab Results 04/04/25 04/04/25 04/04/25 21:49 22:03 22:47 WBC 6.77 RBC 4.04 L Hgb 11.9 L Hct 35.9 L MCV 88.9 MCH 29.5 MCHC 33.1 RDW Std Deviation 44.0 RDW Coeff of Albertina 13.5 Plt Count 115 L MPV 10.0 Immature Gran % (Auto) 0.4 Neut % (Auto) 64.6 Lymph % (Auto) 15.5 Fajardo % (Auto) 19.1 Eos % (Auto) 0.1 Baso % (Auto) 0.3 Reticulocyte % (Auto) Neut # (Auto) 4.37 Lymph # (Auto) 1.05 L Fajardo # (Auto) 1.29 H Eos # (Auto) 0.01 Baso # (Auto) 0.02 Reticulocyte # Immature Gran # (Auto) 0.03 PT 12.2 H INR 1.2 H Sodium 133 L Potassium 4.0 Chloride 103 Carbon Dioxide 21 Anion Gap 9 BUN 15 Creatinine 0.73 Est Cr Clr Drug Dosing 69.5 eGFR 95.27 BUN/Creatinine Ratio 20.5 H Glucose 133 H Estimat Average Glucose Hemoglobin A1c Lactate 1.4 Calcium 8.5 L Magnesium 2.1 Iron Transferrin Ferritin Total Bilirubin 0.6 AST 34 ALT 17 Alkaline Phosphatase 65 Lactate Dehydrogenase Total Protein 6.5 Albumin 3.6 Globulin 2.9 Albumin/Globulin Ratio 1.2 Lipase 10 L Carcinoembryonic Ag Vitamin B12 Folate Procalcitonin 0.55 H TSH Urine Color Yellow Urine Appearance Clear Urine pH 7.0 Ur Specific Reagan 1.020 Urine Protein 1+ H Urine Glucose (UA) Negative Urine Ketones 1+ H Urine Blood 3+ H Urine Nitrite Negative Urine Bilirubin 1+ H Urine Urobilinogen Negative Ur Leukocyte Esterase Negative Urine RBC 0-2 Urine WBC 0-5 Ur Epithelial Cells 0-2 Urine Bacteria 1+ H Urine Mucus Present A Urine Comment Adenovirus (PCR) Not Detected B. pertussis DNA (PCR) Not Detected B.parapertussis DNA PCR Not Detected C. pneumoniae DNA (PCR) Not Detected Coronavirus OC43 (PCR) Not Detected Coronavirus HKU1 (PCR) Not Detected Coronavirus 229E (PCR) Not Detected SARS-CoV-2 (PCR) Not Detected Coronavirus NL63 (PCR) Not Detected Human Metapneumovir PCR Not Detected Influenza Type A (PCR) Not Detected Influenza Type B (PCR) Not Detected M. pneumoniae (PCR) Not Detected Parainfluenza 1 (PCR) Not Detected Parainfluenza 2 (PCR) Not Detected Parainfluenza 3 (PCR) Not Detected Parainfluenza 4 (PCR) Not Detected RSV (PCR) Not Detected Entero/Rhino (PCR) Not Detected 04/05/25 06:33 WBC 5.42 RBC 3.31 L Hgb 9.8 L Hct 29.7 L MCV 89.7 MCH 29.6 MCHC 33.0 RDW Std Deviation 45.5 RDW Coeff of Albertina 13.8 Plt Count 105 L MPV 10.0 Immature Gran % (Auto) 0.6 Neut % (Auto) 61.3 Lymph % (Auto) 16.1 Fajardo % (Auto) 21.6 Eos % (Auto) 0.2 Baso % (Auto) 0.2 Reticulocyte % (Auto) 2.29 H Neut # (Auto) 3.33 Lymph # (Auto) 0.87 L Fajardo # (Auto) 1.17 H Eos # (Auto) 0.01 Baso # (Auto) 0.01 Reticulocyte # 0.080 Immature Gran # (Auto) 0.03 PT INR Sodium 139 Potassium 3.7 Chloride 108 H Carbon Dioxide 25 Anion Gap 6 BUN 11 Creatinine 0.70 Est Cr Clr Drug Dosing 72.5 eGFR 100.19 BUN/Creatinine Ratio 15.7 Glucose 107 H Estimat Average Glucose 111 Hemoglobin A1c 5.5 Lactate Calcium 7.9 L Magnesium Iron 16 L Transferrin 139 L Ferritin 668.0 H Total Bilirubin AST ALT Alkaline Phosphatase Lactate Dehydrogenase 428 H Total Protein Albumin Globulin Albumin/Globulin Ratio Lipase Carcinoembryonic Ag 0.5 Vitamin B12 477 Folate > 22.30 Procalcitonin TSH 2.085 Urine Color Urine Appearance Urine pH Ur Specific Reagan Urine Protein Urine Glucose (UA) Urine Ketones Urine Blood Urine Nitrite Urine Bilirubin Urine Urobilinogen Ur Leukocyte Esterase Urine RBC Urine WBC Ur Epithelial Cells Urine Bacteria Urine Mucus Urine Comment Adenovirus (PCR) B. pertussis DNA (PCR) B.parapertussis DNA PCR C. pneumoniae DNA (PCR) Coronavirus OC43 (PCR) Coronavirus HKU1 (PCR) Coronavirus 229E (PCR) SARS-CoV-2 (PCR) Coronavirus NL63 (PCR) Human Metapneumovir PCR Influenza Type A (PCR) Influenza Type B (PCR) M. pneumoniae (PCR) Parainfluenza 1 (PCR) Parainfluenza 2 (PCR) Parainfluenza 3 (PCR) Parainfluenza 4 (PCR) RSV (PCR) Entero/Rhino (PCR) Diagnostic Findings Abdomen/Pelvis CT 04/04/25 22:22 Exam(s): CT ABDOMEN + PELVIS With Contrast IV Amt: 93 cc opti 320 EXAM: CT Abdomen and Pelvis With Intravenous Contrast CLINICAL HISTORY: abd pain; fevers. TECHNIQUE: Axial computed tomography images of the abdomen and pelvis with intravenous contrast. CTDI is 8.36 mGy and DLP is 395.3 mGy-cm. Automated exposure control was utilized for the study. A dose lowering technique was utilized adhering to the principles of ALARA. CONTRAST: Patient received 93 cc opti 320 of IV contrast COMPARISON: No relevant prior studies available. FINDINGS: Lung bases: Unremarkable. No mass. No consolidation. ABDOMEN: Liver: Unremarkable. No mass. Gallbladder and bile ducts: Unremarkable. No calcified stones. No ductal dilation. Pancreas: Unremarkable. No mass. No ductal dilation. Spleen: Unremarkable. No splenomegaly. Adrenals: Unremarkable. No mass. Kidneys and ureters: No obstructive uropathy. No obstructing renal or ureteral calculi. No hydronephrosis or hydroureter. Stomach and bowel: Mild diffuse abdominal and moderate pelvic free fluid. No free intraperitoneal gas. Air-fluid levels in top-normal caliber small bowel. Distal small bowel wall thickening. Right lower quadrant distal small bowel marked wall thickening versus mesenteric mass 2.4 x 2.8 cm. Ill-defined right colon with diffuse transverse, left and sigmoid colon are normal in caliber. Marked wall thickening and a focal masslike soft tissue density at the medial aspect of the cecum 5.9 x 5 x 3.9 cm. Mild surrounding infiltration. Probable appendix is identified and is normal in appearance. No evidence for diverticulitis. PELVIS: Appendix: No findings to suggest acute appendicitis. Bladder: Unremarkable. No mass. Reproductive: Uterus is identified. Ovaries are not distinctly visualized. ABDOMEN and PELVIS: Bones/joints: No acute fracture. Degenerative changes of the spine. Soft tissues: Unremarkable. Vasculature: Atherosclerotic vascular calcifications. No abdominal aortic aneurysm. Lymph nodes: Abdominal periaortic/retroperitoneal lymphadenopathy up to 1.7 x 1.8 cm. Mesenteric lymphadenopathy greatest in the right lower quadrant with the above-described possible ollie mass versus other soft tissue mass. IMPRESSION: Diffuse severe right colon wall thickening with surrounding infiltration. Masslike soft tissue density in the medial aspect of the cecum. Diffuse ascites. Extensive predominantly abdominal mesenteric and retroperitoneal lymphadenopathy. Findings are suspicious for a right colon/cecal neoplasm occluding a carcinoma or lymphoma versus severe colitis. Appendix is identified and is without evidence for acute appendicitis. Electronically signed by: Florian Cronin M.D. 04/05/25 00:01 AM Chest X-Ray 04/05/25 00:41 EXAM: XR chest 1V portable CLINICAL HISTORY: Fever, hyponatremia. TECHNIQUE: An X-ray image of the chest was obtained in the AP projection. COMPARISON: No prior studies are available for comparison. FINDINGS: Pulmonary Parenchyma: The lungs are clear bilaterally. There is no evidence of consolidation, collapse, or focal opacities. No pulmonary nodules are identified. There is no evidence of pleural effusion or pleural thickening. Heart and Mediastinum: The heart size and shape are normal. There is no mediastinal widening or masses. No hilar or mediastinal lymphadenopathy is present. Bony Thorax: The bony thorax appears intact without fractures or deformities. Soft Tissues: The soft tissues overlying the chest wall are unremarkable. IMPRESSION: Normal chest X-ray. No acute cardiopulmonary abnormalities are identified. Electronically signed by Chris Mccall 04-05-2025 02:45 AM Medications Administered Active Medications Generic Name Dose Route Start Last Admin Trade Name Freq PRN Reason Stop Dose Admin Promethazine HCl 6.25 mg in 50.25 mls @ 201 mls/hr 04/05/25 01:23 04/05/25 10:28 Phenergan IV 05/05/25 01:22 Infused Q6H PRN Infusion Nausea And Vomiting Ceftriaxone Sodium 2,000 mg in 50 mls @ 100 mls/hr 04/05/25 09:00 04/05/25 10:01 Rocephin IV 04/15/25 08:59 Infused Q24H ANGELIKA Infusion Albumin Human 25 gm in 100 mls @ 50 mls/hr 04/05/25 12:00 04/05/25 13:15 Albumin 25% IV 04/05/25 13:59 50 mls/hr Q8H ANGELIKA Administration Oxycodone HCl 5 mg 04/05/25 01:23 04/05/25 10:13 Oxycodone Hcl Ir 5 Mg Tab (Immediate Release) PO 04/19/25 01:22 EST 5 mg Q4H PRN Administration Pain
[2025-04-05] MEDS: ACETAMINOPHEN 325 MG TAB PO PRN (17:23)
[2025-04-05] MEDS: metroNIDAZOLE 500 MG/100 ML BAG IV STA (20:47)
[2025-04-05 21:46] LABS: Cdiff Toxin B Gene (2yr or >) Negative Cdiff Gene (Neg)
--- NOTE | 2025-04-05 21:47 | Communication Note ---
Date of Service: April 05, 2025 Patient noted to be febrile. Loose stools in a.m. Stool C. difficile specimen to be collected AP Fever with diarrhea Rule out C. difficile Flagyl 1 dose now
[2025-04-05 22:20] LABS: Adenovirus F 40/41 PCR Not Detected (NotDetected); Campylobacter PCR Not Detected (NotDetected); Enteroaggregative E.coli(EAEC) Not Detected (NotDetected); Shiga-like Toxin E.coli (STEC) Not Detected (NotDetected); Vibrio species PCR Not Detected (NotDetected)
[2025-04-06] MEDS: LAVAGE SOLUTION 4000ML PO SCH (05:47)
[2025-04-06 07:30] LABS: Hematocrit (blood only) 32.7 % (37.0-47.0); Hemoglobin 10.9 g/dl (12.0-16.0); Mean Corpuscular Hemoglobin 30.2 pg (25.0-34.0); Mean Corpuscular Volume 90.6 fL (80.0-100.0); Platelet Count 98 K/uL (130-400); RDW Standard Deviation 45.3 fL (36.4-46.3); Red Blood Count 3.61 M/uL (4.20-5.40); White Blood Count 7.29 K/ul (4.8-10.8)
[2025-04-06 07:47] LABS: Anion Gap 15.0 (3-11); Blood Urea Nitrogen 13.0 mg/dl (6-23); Calcium 8.2 mg/dl (8.6-10.3); Carbon Dioxide 18.0 mmol/L (21-32); Chloride 106.0 mmol/L (98-107); Creatinine Clr Calc Pharmacy 75.7 ml/min; Glucose 77.0 mg/dl (70-99(Fasting)); Potassium 3.5 mmol/L (3.5-5.1); Sodium 139.0 mmol/L (136-145)
[2025-04-06] MEDS: ALBUMIN 25% 25 GM/100 ML VIAL IV ONE (09:49)
[2025-04-06] MEDS: SODIUM CHLORIDE 0.9% 500 ML IV ONE (09:49)
--- NOTE | 2025-04-06 09:54 | Ultrasound Report ---
Limited abdominal ultrasound INDICATION: Paracentesis request COMPARISON: CT abdomen and pelvis 04/04/2025 FINDINGS: Ultrasound imaging in all 4 abdominal quadrants was performed. A scant amount of ascites fl uid was noted. This is not enough to safely perform paracentesis. IMPRESSION: Scant ascites, too small to safely perform paracentesis. Performed, dictated, and signed by Douglas Pedroza PA-C; to be co-signed by Dr. Last Christopher. Electronically signed by: Last Christopher M.D. 04/06/2025 10:12 AM
--- NOTE | 2025-04-06 11:04 | Gastroenterology Progress Note ---
Date of Service April 06, 2025 Assessment & Plan (1) Mass of cecum: (2) Abdominal pain: Plan 59yo [place] female with abdominal pain x 1 month with cecal mass, adenopathy and ascites. Hgb improved today at 10.9g/dl. Stool PCR and C.diff negative. Unable to tap ascites d/t low volume. (1) Cecal Mass - Recommended CEA levels. - Plan to proceed with Colonoscopy tomorrow. - Continue with prep throughout the day. Clear liquid diet today. NPO after midnight. Tap water enema in the morning. - May use Ondansetron as needed for nausea/vomiting. - Further recommendations to come with results of Colonoscopy. Admission and Anticipated Discharge Date Admission Date: April 05, 2025 Supervising Physician Co-Signing Physician Notes I personally saw and examined the patient. I have reviewed the chart and agree with the documentation provided by the KEG RAISER including discussion about the assessment, treatment and plan. Briefly, 59-year-old female with history of nausea vomiting abdominal pain and low-grade fever who is found to have a: Diffuse severe right colon wall thickening with surrounding infiltration. Masslike soft tissue density in the medial aspect of the cecum. Diffuse ascites. Extensive predominantly abdominal mesenteric and retroperitoneal lymphadenopathy. Findings are suspicious for a right colon/cecal neoplasm occluding a carcinoma or lymphoma versus severe colitis. CEA is pending. Findings are very concerning for malignancy B-cell lymphoma greater than colon cancer given the negative colonoscopy approximately 10 years ago and a normal liver currently but with diffuse mesenteric lymphadenopathy. She is able to take prep. Keep her n.p.o. after midnight will plan for colonoscopy tomorrow Subjective 59yo Mandarin speaking female is seen today for abdominal discomfort x 1 month with cecal mass and ascites on imaging. History assisted from family. She reported increased abdominal discomfort with sensation of constipation x 1 month. This progressed in severity leading to a ER visit. CT revealed a cecal mass with mesenteric adenopathy and ascites. She did have a fever of 100.2F yesterday. Stool PCR and C.diff negative. She's afebrile today. They attempted to complete a paracentesis but there wasn't enough fluid present. Today she's passing stools. She didn't start her colonoscopy prep until this AM which she's tolerating poorly with vomiting. She denies any weight loss, hematemesis, abdominal pain, melena or hematochezia. Family history - Negative for Colorectal CA, IBD or celiac disease. Social History - No tobacco, alcohol or drug use. Pertinent diagnostics ABDOMEN: Liver: Unremarkable. No mass. Gallbladder and bile ducts: Unremarkable. No calcified stones. No ductal dilation. Pancreas: Unremarkable. No mass. No ductal dilation. Spleen: Unremarkable. No splenomegaly. Adrenals: Unremarkable. No mass. Kidneys and ureters: No obstructive uropathy. No obstructing renal or ureteral calculi. No hydronephrosis or hydroureter. Stomach and bowel: Mild diffuse abdominal and moderate pelvic free fluid. No free intraperitoneal gas. Air-fluid levels in top-normal caliber small bowel. Distal small bowel wall thickening. Right lower quadrant distal small bowel marked wall thickening versus mesenteric mass 2.4 x 2.8 cm. Ill-defined right colon with diffuse transverse, left and sigmoid colon are normal in caliber. Marked wall thickening and a focal masslike soft tissue density at the medial aspect of the cecum 5.9 x 5 x 3.9 cm. Mild surrounding infiltration. Probable appendix is identified and is normal in appearance. No evidence for diverticulitis. PELVIS: Appendix: No findings to suggest acute appendicitis. Bladder: Unremarkable. No mass. Reproductive: Uterus is identified. Ovaries are not distinctly visualized. ABDOMEN and PELVIS: Bones/joints: No acute fracture. Degenerative changes of the spine. Soft tissues: Unremarkable. Vasculature: Atherosclerotic vascular calcifications. No abdominal aortic aneurysm. Lymph nodes: Abdominal periaortic/retroperitoneal lymphadenopathy up to 1.7 x 1.8 cm. Mesenteric lymphadenopathy greatest in the right lower quadrant with the above-described possible ollie mass versus other soft tissue mass. IMPRESSION: Diffuse severe right colon wall thickening with surrounding infiltration. Masslike soft tissue density in the medial aspect of the cecum. Diffuse ascites. Extensive predominantly abdominal mesenteric and retroperitoneal lymphadenopathy. Findings are suspicious for a right colon/cecal neoplasm occluding a carcinoma or lymphoma versus severe colitis. Appendix is identified and is without evidence for acute appendicitis. Review of Systems Review of Systems: See HPI Physical Exam Physical Exam: Constitutional: NAD. Alert. Answering questions appropriately. Respiratory: Breathing is even, non-labored. Lungs vora are clear to auscultation anteriorly. Cardiovascular: Regular Rate and Rhythm, no murmurs, rubs or gallops appreciated. Gastrointestinal (Abdomen): Normoactive bowel sounds x4, soft, non-distended, non-tender. Musculoskeletal: Lying in bed comfortably. No peripheral edema. Results & Data Results & Data Vital Signs (Past 12 Hours) Vital Signs Temp Pulse Resp BP Pulse Ox O2 Del Method 04/06/25 07:38 98.2 F 81 18 94/65 L 98 Room Air 04/06/25 05:05 100.2 F H PG Care Time/CCT Total # of Minutes Spent Total Time Spent with Patient: Total time spent is greater than 50% in coordination of care (as documented) at patient's floor/unit and/or counseling patient: Coding Level of Care Code 69163 SUB INP/OBS CARE 3/50MIN Diagnoses Mass of cecum K63.89 Abdominal pain R10.9
[2025-04-06 11:32] LABS: Cdiff Toxin B Gene (2yr or >) Negative Cdiff Gene (Neg)
[2025-04-06] MEDS: SODIUM CHLORIDE 0.9% 1,000 ML IV SCH (11:37)
[2025-04-06] MEDS: ONDANSETRON INJ 2 MG/ML 2 ML VIAL IV PRN (11:39)
--- NOTE | 2025-04-06 15:16 | Hospitalist Progress Note ---
Date of Service April 06, 2025 Assessment & Plan (1) Abdominal pain: Plan: Cecal mass/Colitis --cannot rule out neoplasm DD:Lymphoma Suspected malignant ascites --CT ABD: Diffuse severe right colon wall thickening with surrounding infiltration. Masslike soft tissue density in the medial aspect of the cecum. Diffuse ascites. Extensive predominantly abdominal mesenteric and retroperitoneal lymphadenopathy. Findings are suspicious for a right colon/cecal neoplasm occluding a carcinoma or lymphoma versus severe colitis. Appendix is identified and is without evidence for acute appendicitis. --CEA antigen 0.5 --Blood culture: Negative to date --Urine culture negative IR paracentesis attempted-- no significant ascites + Fecal occult --Stool PCR, stool for C. difficile negative Liquid diet for now Started on colon prep Appreciate surgery, GI input Plan for colonoscopy tomorrow N.p.o. after midnight Iron deficiency anemia No acute bleeding issues +FOBT Will start on iron supplements as able Abnormal UA Microscopic hematuria R/O UTI --Urine Culture: preliminary negative Empirically on Rocephin as above May need Urology eval as outpatient DVT Px: SCDs for now Code status Full code Family: Mr. Mike Cat ([place]), contact #[phone]. Admission and Anticipated Discharge Date Admission Date: April 05, 2025 Subjective Patient is seen and examined at bedside Still has abdominal pain associated with nausea Also had loose BM Was started on colon prep today Discussed with patient's family at bedside Denies any chest pain, dyspnea, weight loss Review of Systems Review of Systems: All systems reviewed & are unremarkable except as noted in Subjective Physical Exam Physical Exam: Physical Exam: Vitals signs as noted above General Appearance:Moderately built and nourished, no apparent distress Head: normocephalic, Atraumatic Eyes: normal inspection, EOMI Neck: supple, Trachea midline Respiratory/Chest: Normal breath sounds, CTA, No accessory muscle use Cardiovascular: S1, S2, No murmur Abdomen/GI:Soft, tenderness epigastric, hypogastric, right lower quadrant and some upper quadrant, normal bowel sounds, no guarding or rigidity. Extremities/Musculoskeletal:normal inspection, no edema Neurologic/Psych:AAOX3, grossly no focal neurological deficits Skin: normal color, warm Results & Data Results & Data Vital Signs (Past 12 Hours) Vital Signs Temp Pulse Resp BP Pulse Ox O2 Del Method 04/06/25 14:44 37.8 C H 90 18 116/76 98 Room Air 04/06/25 07:38 36.8 C 81 18 94/65 L 98 Room Air 04/06/25 05:05 37.9 C H Laboratory Results Short CBC 04/06/25 Range/Units 06:59 WBC 7.29 (4.8-10.8) K/ul Hgb 10.9 L (12.0-16.0) g/dl Hct 32.7 L (37.0-47.0) % Plt Count 98 L (130-400) K/uL BMP 04/06/25 06:59 Sodium 139 Potassium 3.5 Chloride 106 Carbon Dioxide 18 L BUN 13 Creatinine 0.67 Glucose 77 Calcium 8.2 L
[2025-04-07 07:17] LABS: Hematocrit (blood only) 29.9 % (37.0-47.0); Hemoglobin 9.8 g/dl (12.0-16.0); Mean Corpuscular Hemoglobin 29.4 pg (25.0-34.0); Mean Corpuscular Volume 89.8 fL (80.0-100.0); Platelet Count 97 K/uL (130-400); RDW Standard Deviation 46.8 fL (36.4-46.3); Red Blood Count 3.33 M/uL (4.20-5.40); White Blood Count 5.89 K/ul (4.8-10.8)
[2025-04-07 07:36] LABS: Anion Gap 12.0 (3-11); Blood Urea Nitrogen 13.0 mg/dl (6-23); Calcium 7.8 mg/dl (8.6-10.3); Carbon Dioxide 19.0 mmol/L (21-32); Chloride 112.0 mmol/L (98-107); Creatinine Clr Calc Pharmacy 89.0 ml/min; Glucose 83.0 mg/dl (70-99(Fasting)); Potassium 3.4 mmol/L (3.5-5.1); Sodium 143.0 mmol/L (136-145)
--- NOTE | 2025-04-07 09:03 | History & Physical Bridge Note ---
Date of Service April 07, 2025 History & Physical Bridge Note I have examined the patient, reviewed the History & Physical and in the interval since the performance of the History & Physical I have noted the following changes of clinical significance: no changes noted Patient has completed prep as directed. Passing clear stools. Plan to proceed with colonoscopy as directed.
--- NOTE | 2025-04-07 09:19 | Anesthesiology Consultation ---
Date of Service April 07, 2025 Assessment & Plan ASA ASA2 Proposed Anesthesia Anesthesia Type: MAC Risk / Benefits Reviewed With: PT / POA / Parent / Guardian, Accepts Plan and Informed Consent Obtained History Surgery Operation Date: 04/07/25 16:30 Proposed Procedures kahterine Schmid MD Height/Weight Height: 5 ft 3 in Weight: 55.3 kg Allergies Allergy/AdvReac Type Severity Reaction Status Date / Time No Known Allergies Allergy Unverified 04/04/25 22:40 Medications Active Medications Generic Name Dose Route Start Last Admin Trade Name Freq PRN Reason Stop Dose Admin Acetaminophen 650 mg 04/05/25 01:23 04/06/25 23:20 Acetaminophen 325 Mg Tab PO 05/05/25 01:22 650 mg QID PRN Administration pain/fever Ceftriaxone Sodium 2,000 mg in 50 mls @ 100 mls/hr 04/05/25 09:00 04/06/25 09:03 Rocephin IV 04/15/25 08:59 Infused Q24H ANGELIKA Infusion Sodium Chloride 1,000 mls @ 80 mls/hr 04/06/25 11:30 04/06/25 23:51 Nss IV 04/09/25 11:29 80 mls/hr .[id number] ANGELIKA Administration Ondansetron HCl 4 mg 04/06/25 10:09 04/06/25 20:20 Ondansetron Inj 2 Mg/Ml 2 Ml Vial IV 05/06/25 10:08 4 mg Q6H PRN Administration Nausea And Vomiting Oxycodone HCl 5 mg 04/05/25 01:23 04/06/25 20:20 Oxycodone Hcl Ir 5 Mg Tab (Immediate Release) PO 04/19/25 01:22 EST 5 mg Q4H PRN Administration Pain NPO Date Last Intake of Fluids: 04/06/25 Time Last Intake of Fluids: 23:59 Date Last Intake of Solids: 04/06/25 Time Last Intake of Solids: 23:59 Exercise / Class Metabolic Activity II 4-5 Yardwork/Stairs/Walk up hill Past Anesthesia History No Hx of Anesthesia Complications and No Family Hx of Anesthesia Complications History of PONV No Hx of PONV and No Hx of Motion Sickness Social History Smoking Status: Never smoker Hx Alcohol Use: No Hx Substance Use: No Physical Exam Vital Signs Last Vital Signs Temp 37.9 C H 04/07/25 07:28 Pulse 86 04/07/25 07:28 Resp 18 04/07/25 07:28 BP 100/68 04/07/25 07:28 Pulse Ox 98 04/07/25 07:28 O2 Del Method Room Air 04/07/25 07:28 Constitutional no acute distress ENMT Mouth: no dentition abnormality Thyromental Distance: > or= 3.5 Finger Breadths Mallampati Class: II Neck normal visual inspection Respiratory normal respiratory effort; no respiratory distress Auscultation: lungs clear to auscultation bilaterally Cardiovascular Rate/Rhythm: regular rate and regular rhythm Heart Sounds: no murmur Musculoskeletal Spine: normal cervical ROM Psychiatric Orientation: alert and oriented x 3 Testing Laboratory Results 04/07/25 06:51 04/07/25 06:51 PT 12.2 Seconds (9.0-12.0) H 04/04/25 22:03 INR 1.2 (0.9-1.1) H 04/04/25 22:03 Hemoglobin A1c 5.5 % (4.5-5.6) 04/05/25 06:33 Urine Color Yellow 04/04/25 21:49 Urine Appearance Clear (Clear) 04/04/25 21:49 Urine pH 7.0 (4.5-7.5) 04/04/25 21:49 Ur Specific [place] 1.020 (1.000-1.030) 04/04/25 21:49 Urine Protein 1+ (Negative) H 04/04/25 21:49 Urine Glucose (UA) Negative (Negative) 04/04/25 21:49 Urine Ketones 1+ (Negative) H 04/04/25 21:49 Urine Nitrite Negative (Negative) 04/04/25 21:49 Ur Leukocyte Esterase Negative (Negative) 04/04/25 21:49 Urine RBC 0-2 /hpf (0-2) 04/04/25 21:49 Urine WBC 0-5 /hpf (0-5) 04/04/25 21:49 Ur Epithelial Cells 0-2 /hpf (0-2) 04/04/25 21:49 04/05/25 00:45 Aerobic Blood Culture - Preliminary Blood No growth in Aerobic bottle after 48 hours. Anaerobic Blood Culture - Preliminary No growth in Anaerobic bottle after 48 hours. 04/05/25 00:57 Aerobic Blood Culture - Preliminary Blood No growth in Aerobic bottle after 48 hours. Anaerobic Blood Culture - Preliminary No growth in Anaerobic bottle after 48 hours. 04/05/25 16:18 Urine Culture - Preliminary Urine,Clean Catch No growth - Less than 1,000 colonies/mL, Final report to follow. Data & Results ECOG/Weight/Vitals Weight: 55.3 kg Vitals Signs: Vital Signs Temp Pulse Resp BP Pulse Ox O2 Del Method 04/07/25 07:28 37.9 C H 86 18 100/68 98 Room Air 04/07/25 02:37 37.0 C 04/06/25 22:45 37.9 C H 93 H 16 113/75 96 Room Air Laboratory Values 04/07/25 04/06/25 04/06/25 Range/Units 06:51 10: 06:59 WBC 5.89 7.29 (4.8-10.8) K/ul RBC 3.33 L 3.61 L (4.20-5.40) M/uL Hgb 9.8 L 10.9 L (12.0-16.0) g/dl Hct 29.9 L 32.7 L (37.0-47.0) % MCV 89.8 90.6 (80.0-100.0) fL MCH 29.4 30.2 (25.0-34.0) pg MCHC 32.8 33.3 (32.0-36.0) g/dL RDW Std Deviation 46.8 H 45.3 (36.4-46.3) fL RDW Coeff of Albertina 14.3 13.6 (11.5-14.5) % Plt Count 97 L 98 L (130-400) K/uL MPV 9.8 9.6 (9.4-12.4) fL Immature Gran % (Auto) % Neut % (Auto) % Lymph % (Auto) % Colbert % (Auto) % Eos % (Auto) % Baso % (Auto) % Reticulocyte % (Auto) (0.50-2.00) % Neut # (Auto) (1.40-6.50) K/uL Lymph # (Auto) (1.20-3.40) K/uL Colbert # (Auto) (0.11-0.59) K/uL Eos # (Auto) (0.00-0.50) K/uL Baso # (Auto) (0.00-0.20) K/uL Reticulocyte # (0.020-0.100) 10^6/uL Immature Gran # (Auto) (0.01-0.20) K/uL PT (9.0-12.0) Seconds INR (0.9-1.1) Sodium 143 139 (136-145) mmol/L Potassium 3.4 L 3.5 (3.5-5.1) mmol/L Chloride 112 H 106 (98-107) mmol/L Carbon Dioxide 19 L 18 L (21-32) mmol/L Anion Gap 12 H 15 H (3-11) BUN 13 13 (6-23) mg/dl Creatinine 0.57 L 0.67 (0.6-1.2) mg/dl Est Cr Clr Drug Dosing 89.0 75.7 ml/min eGFR 105.27 101.25 BUN/Creatinine Ratio 22.8 H 19.4 (10-20) Glucose 83 77 (70-99(Fasting)) mg/dl Estimat Average Glucose mg/dl Hemoglobin A1c (4.5-5.6) % Lactate (0.4-2.0) mmol/L Calcium 7.8 L 8.2 L (8.6-10.3) mg/dl Magnesium (1.7-2.4) mg/dl Iron (35-150) mcg/dl Transferrin (200-360) mg/dl Ferritin (8-388) ng/ml Total Bilirubin (0.2-1.0) mg/dl AST (13-39) U/L ALT (7-52) U/L Alkaline Phosphatase (34-104) U/L Lactate Dehydrogenase (86-244) U/L Total Protein (6.0-8.3) gm/dl Albumin (3.4-5.0) gm/dl Globulin (2.5-4.0) gm/dl Albumin/Globulin Ratio (0.9-2) Lipase (11-82) U/L Carcinoembryonic Ag (0-2.5) ng/ml Vitamin B12 (180-914) pg/ml Folate (>5.38) ng/ml Procalcitonin (0-0.5) ng/ml TSH (0.300-4.500) uIu/ml Urine Color Urine Appearance (Clear) Urine pH (4.5-7.5) Ur Specific [place] (1.000-1.030) Urine Protein (Negative) Urine Glucose (UA) (Negative) Urine Ketones (Negative) Urine Blood (Negative) Urine Nitrite (Negative) Urine Bilirubin (Negative) Urine Urobilinogen (Negative) Ur Leukocyte Esterase (Negative) Urine RBC (0-2) /hpf Urine WBC (0-5) /hpf Ur Epithelial Cells (0-2) /hpf Urine Bacteria (None Seen) Urine Mucus (None Prsent) Urine Comment Stool Occult Bld Scrn (Negative) Stl C. cayetanensis PCR (NotDetected) Stool Rotavirus A PCR (NotDetected) Stl Adenov F 40/41 PCR (NotDetected) Stool Astrovirus (PCR) (NotDetected) Stool Campylobacter PCR (NotDetected) Stl C. diff Tox B Gene Negative Cdiff Gene (Neg) Stl C. diff 027-NAP1-BI NEGATIVE Stool Cryptosporidium PCR (NotDetected) Stl E.coli Shiga Tox PCR (NotDetected) Stl Enterotoxigenic E PCR (NotDetected) Stool EPEC (PCR) (NotDetected) Stool EAEC (PCR) (NotDetected) Stl E. histolytica PCR (NotDetected) Stool Giardia Lamblia PCR (NotDetected) Stool Salmonella PCR (NotDetected) Stool Sapovirus (PCR) (NotDetected) Stl P. shigelloides PCR (NotDetected) Stl Shigella/EIEC PCR (NotDetected) St Y.enterocolitica PCR (NotDetected) Stool Vibrio (PCR) (NotDetected) Stl Vibrio cholerae PCR (NotDetected) Stl Norovirus GI/GII PCR (NotDetected) Adenovirus (PCR) (NotDetected) B. pertussis DNA (PCR) (NotDetected) B.parapertussis DNA PCR (NotDetected) C. pneumoniae DNA (PCR) (NotDetected) Coronavirus OC43 (PCR) (NotDetected) Coronavirus HKU1 (PCR) (NotDetected) Coronavirus 229E (PCR) (NotDetected) SARS-CoV-2 (PCR) (NotDetected) Coronavirus NL63 (PCR) (NotDetected) Human Metapneumovir PCR (NotDetected) Influenza Type A (PCR) (NotDetected) Influenza Type B (PCR) (NotDetected) M. pneumoniae (PCR) (NotDetected) Parainfluenza 1 (PCR) (NotDetected) Parainfluenza 2 (PCR) (NotDetected) Parainfluenza 3 (PCR) (NotDetected) Parainfluenza 4 (PCR) (NotDetected) RSV (PCR) (NotDetected) Entero/Rhino (PCR) (NotDetected) 04/05/25 04/05/25 04/04/25 Range/Units 20:34 06:33 22:47 WBC 5.42 (4.8-10.8) K/ul RBC 3.31 L (4.20-5.40) M/uL Hgb 9.8 L (12.0-16.0) g/dl Hct 29.7 L (37.0-47.0) % MCV 89.7 (80.0-100.0) fL MCH 29.6 (25.0-34.0) pg MCHC 33.0 (32.0-36.0) g/dL RDW Std Deviation 45.5 (36.4-46.3) fL RDW Coeff of Albertina 13.8 (11.5-14.5) % Plt Count 105 L (130-400) K/uL MPV 10.0 (9.4-12.4) fL Immature Gran % (Auto) 0.6 % Neut % (Auto) 61.3 % Lymph % (Auto) 16.1 % Colbert % (Auto) 21.6 % Eos % (Auto) 0.2 % Baso % (Auto) 0.2 % Reticulocyte % (Auto) 2.29 H (0.50-2.00) % Neut # (Auto) 3.33 (1.40-6.50) K/uL Lymph # (Auto) 0.87 L (1.20-3.40) K/uL Colbert # (Auto) 1.17 H (0.11-0.59) K/uL Eos # (Auto) 0.01 (0.00-0.50) K/uL Baso # (Auto) 0.01 (0.00-0.20) K/uL Reticulocyte # 0.080 (0.020-0.100) 10^6/uL Immature Gran # (Auto) 0.03 (0.01-0.20) K/uL PT (9.0-12.0) Seconds INR (0.9-1.1) Sodium 139 (136-145) mmol/L Potassium 3.7 (3.5-5.1) mmol/L Chloride 108 H (98-107) mmol/L Carbon Dioxide 25 (21-32) mmol/L Anion Gap 6 (3-11) BUN 11 (6-23) mg/dl Creatinine 0.70 (0.6-1.2) mg/dl Est Cr Clr Drug Dosing 72.5 ml/min eGFR 100.19 BUN/Creatinine Ratio 15.7 (10-20) Glucose 107 H (70-99(Fasting)) mg/dl Estimat Average Glucose 111 mg/dl Hemoglobin A1c 5.5 (4.5-5.6) % Lactate 1.4 (0.4-2.0) mmol/L Calcium 7.9 L (8.6-10.3) mg/dl Magnesium (1.7-2.4) mg/dl Iron 16 L (35-150) mcg/dl Transferrin 139 L (200-360) mg/dl Ferritin 668.0 H (8-388) ng/ml Total Bilirubin (0.2-1.0) mg/dl AST (13-39) U/L ALT (7-52) U/L Alkaline Phosphatase (34-104) U/L Lactate Dehydrogenase 428 H (86-244) U/L Total Protein (6.0-8.3) gm/dl Albumin (3.4-5.0) gm/dl Globulin (2.5-4.0) gm/dl Albumin/Globulin Ratio (0.9-2) Lipase (11-82) U/L Carcinoembryonic Ag 0.5 (0-2.5) ng/ml Vitamin B12 477 (180-914) pg/ml Folate > 22.30 (>5.38) ng/ml Procalcitonin (0-0.5) ng/ml TSH 2.085 (0.300-4.500) uIu/ml Urine Color Urine Appearance (Clear) Urine pH (4.5-7.5) Ur Specific [place] (1.000-1.030) Urine Protein (Negative) Urine Glucose (UA) (Negative) Urine Ketones (Negative) Urine Blood (Negative) Urine Nitrite (Negative) Urine Bilirubin (Negative) Urine Urobilinogen (Negative) Ur Leukocyte Esterase (Negative) Urine RBC (0-2) /hpf Urine WBC (0-5) /hpf Ur Epithelial Cells (0-2) /hpf Urine Bacteria (None Seen) Urine Mucus (None Prsent) Urine Comment Stool Occult Bld Scrn Positive A (Negative) Stl C. cayetanensis PCR Not Detected (NotDetected) Stool Rotavirus A PCR Not Detected (NotDetected) Stl Adenov F 40/41 PCR Not Detected (NotDetected) Stool Astrovirus (PCR) Not Detected (NotDetected) Stool Campylobacter PCR Not Detected (NotDetected) Stl C. diff Tox B Gene Negative Cdiff Gene (Neg) Stl C. diff 027-NAP1-BI NEGATIVE Stool Cryptosporidium PCR Not Detected (NotDetected) Stl E.coli Shiga Tox PCR Not Detected (NotDetected) Stl Enterotoxigenic E PCR Not Detected (NotDetected) Stool EPEC (PCR) Not Detected (NotDetected) Stool EAEC (PCR) Not Detected (NotDetected) Stl E. histolytica PCR Not Detected (NotDetected) Stool Giardia Lamblia PCR Not Detected (NotDetected) Stool Salmonella PCR Not Detected (NotDetected) Stool Sapovirus (PCR) Not Detected (NotDetected) Stl P. shigelloides PCR Not Detected (NotDetected) Stl Shigella/EIEC PCR Not Detected (NotDetected) St Y.enterocolitica PCR Not Detected (NotDetected) Stool Vibrio (PCR) Not Detected (NotDetected) Stl Vibrio cholerae PCR Not Detected (NotDetected) Stl Norovirus GI/GII PCR Not Detected (NotDetected) Adenovirus (PCR) Not Detected (NotDetected) B. pertussis DNA (PCR) Not Detected (NotDetected) B.parapertussis DNA PCR Not Detected (NotDetected) C. pneumoniae DNA (PCR) Not Detected (NotDetected) Coronavirus OC43 (PCR) Not Detected (NotDetected) Coronavirus HKU1 (PCR) Not Detected (NotDetected) Coronavirus 229E (PCR) Not Detected (NotDetected) SARS-CoV-2 (PCR) Not Detected (NotDetected) Coronavirus NL63 (PCR) Not Detected (NotDetected) Human Metapneumovir PCR Not Detected (NotDetected) Influenza Type A (PCR) Not Detected (NotDetected) Influenza Type B (PCR) Not Detected (NotDetected) M. pneumoniae (PCR) Not Detected (NotDetected) Parainfluenza 1 (PCR) Not Detected (NotDetected) Parainfluenza 2 (PCR) Not Detected (NotDetected) Parainfluenza 3 (PCR) Not Detected (NotDetected) Parainfluenza 4 (PCR) Not Detected (NotDetected) RSV (PCR) Not Detected (NotDetected) Entero/Rhino (PCR) Not Detected (NotDetected) 04/04/25 04/04/25 Range/Units 22:03 21:49 WBC 6.77 (4.8-10.8) K/ul RBC 4.04 L (4.20-5.40) M/uL Hgb 11.9 L (12.0-16.0) g/dl Hct 35.9 L (37.0-47.0) % MCV 88.9 (80.0-100.0) fL MCH 29.5 (25.0-34.0) pg MCHC 33.1 (32.0-36.0) g/dL RDW Std Deviation 44.0 (36.4-46.3) fL RDW Coeff of Albertina 13.5 (11.5-14.5) % Plt Count 115 L (130-400) K/uL MPV 10.0 (9.4-12.4) fL Immature Gran % (Auto) 0.4 % Neut % (Auto) 64.6 % Lymph % (Auto) 15.5 % Colbert % (Auto) 19.1 % Eos % (Auto) 0.1 % Baso % (Auto) 0.3 % Reticulocyte % (Auto) (0.50-2.00) % Neut # (Auto) 4.37 (1.40-6.50) K/uL Lymph # (Auto) 1.05 L (1.20-3.40) K/uL [place]bert # (Auto) 1.29 H (0.11-0.59) K/uL Eos # (Auto) 0.01 (0.00-0.50) K/uL Baso # (Auto) 0.02 (0.00-0.20) K/uL Reticulocyte # (0.020-0.100) 10^6/uL Immature Gran # (Auto) 0.03 (0.01-0.20) K/uL PT 12.2 H (9.0-12.0) Seconds INR 1.2 H (0.9-1.1) Sodium 133 L (136-145) mmol/L Potassium 4.0 (3.5-5.1) mmol/L Chloride 103 (98-107) mmol/L Carbon Dioxide 21 (21-32) mmol/L Anion Gap 9 (3-11) BUN 15 (6-23) mg/dl Creatinine 0.73 (0.6-1.2) mg/dl Est Cr Clr Drug Dosing 69.5 ml/min eGFR 95.27 BUN/Creatinine Ratio 20.5 H (10-20) Glucose 133 H (70-99(Fasting)) mg/dl Estimat Average Glucose mg/dl Hemoglobin A1c (4.5-5.6) % Lactate (0.4-2.0) mmol/L Calcium 8.5 L (8.6-10.3) mg/dl Magnesium 2.1 (1.7-2.4) mg/dl Iron (35-150) mcg/dl Transferrin (200-360) mg/dl Ferritin (8-388) ng/ml Total Bilirubin 0.6 (0.2-1.0) mg/dl AST 34 (13-39) U/L ALT 17 (7-52) U/L Alkaline Phosphatase 65 (34-104) U/L Lactate Dehydrogenase (86-244) U/L Total Protein 6.5 (6.0-8.3) gm/dl Albumin 3.6 (3.4-5.0) gm/dl Globulin 2.9 (2.5-4.0) gm/dl Albumin/Globulin Ratio 1.2 (0.9-2) Lipase 10 L (11-82) U/L Carcinoembryonic Ag (0-2.5) ng/ml Vitamin B12 (180-914) pg/ml Folate (>5.38) ng/ml Procalcitonin 0.55 H (0-0.5) ng/ml TSH (0.300-4.500) uIu/ml Urine Color Yellow Urine Appearance Clear (Clear) Urine pH 7.0 (4.5-7.5) Ur Specific [place] 1.020 (1.000-1.030) Urine Protein 1+ H (Negative) Urine Glucose (UA) Negative (Negative) Urine Ketones 1+ H (Negative) Urine Blood 3+ H (Negative) Urine Nitrite Negative (Negative) Urine Bilirubin 1+ H (Negative) Urine Urobilinogen Negative (Negative) Ur Leukocyte Esterase Negative (Negative) Urine RBC 0-2 (0-2) /hpf Urine WBC 0-5 (0-5) /hpf Ur Epithelial Cells 0-2 (0-2) /hpf Urine Bacteria 1+ H (None Seen) Urine Mucus Present A (None Prsent) Urine Comment Stool Occult Bld Scrn (Negative) Stl C. cayetanensis PCR (NotDetected) Stool Rotavirus A PCR (NotDetected) Stl Adenov F 40/41 PCR (NotDetected) Stool Astrovirus (PCR) (NotDetected) Stool Campylobacter PCR (NotDetected) Stl C. diff Tox B Gene (Neg) Stl C. diff 027-NAP1-BI Stool Cryptosporidium PCR (NotDetected) Stl E.coli Shiga Tox PCR (NotDetected) Stl Enterotoxigenic E PCR (NotDetected) Stool EPEC (PCR) (NotDetected) Stool EAEC (PCR) (NotDetected) Stl E. histolytica PCR (NotDetected) Stool Giardia Lamblia PCR (NotDetected) Stool Salmonella PCR (NotDetected) Stool Sapovirus (PCR) (NotDetected) Stl P. shigelloides PCR (NotDetected) Stl Shigella/EIEC PCR (NotDetected) St Y.enterocolitica PCR (NotDetected) Stool Vibrio (PCR) (NotDetected) Stl Vibrio cholerae PCR (NotDetected) Stl Norovirus GI/GII PCR (NotDetected) Adenovirus (PCR) (NotDetected) B. pertussis DNA (PCR) (NotDetected) B.parapertussis DNA PCR (NotDetected) C. pneumoniae DNA (PCR) (NotDetected) Coronavirus OC43 (PCR) (NotDetected) Coronavirus HKU1 (PCR) (NotDetected) Coronavirus 229E (PCR) (NotDetected) SARS-CoV-2 (PCR) (NotDetected) Coronavirus NL63 (PCR) (NotDetected) Human Metapneumovir PCR (NotDetected) Influenza Type A (PCR) (NotDetected) Influenza Type B (PCR) (NotDetected) M. pneumoniae (PCR) (NotDetected) Parainfluenza 1 (PCR) (NotDetected) Parainfluenza 2 (PCR) (NotDetected) Parainfluenza 3 (PCR) (NotDetected) Parainfluenza 4 (PCR) (NotDetected) RSV (PCR) (NotDetected) Entero/Rhino (PCR) (NotDetected) Day of Procedure Evaluation. Date of Surgery April 07, 2025 Height/Weight Height: 5 ft 3 in Weight: 55.3 kg Vital Signs Last Vital Signs Temp 37.9 C H 04/07/25 07:28 Pulse 86 04/07/25 07:28 Resp 18 04/07/25 07:28 BP 100/68 04/07/25 07:28 Pulse Ox 98 04/07/25 07:28 O2 Del Method Room Air 04/07/25 07:28 Allergies Allergy/AdvReac Type Severity Reaction Status Date / Time No Known Allergies Allergy Unverified 04/04/25 22:40 Medications Active Medications Generic Name Dose Route Start Last Admin Trade Name Freq PRN Reason Stop Dose Admin Acetaminophen 650 mg 04/05/25 01:23 04/06/25 23:20 Acetaminophen 325 Mg Tab PO 05/05/25 01:22 650 mg QID PRN Administration pain/fever Ceftriaxone Sodium 2,000 mg in 50 mls @ 100 mls/hr 04/05/25 09:00 04/06/25 09:03 Rocephin IV 04/15/25 08:59 Infused Q24H ANGELIKA Infusion Sodium Chloride 1,000 mls @ 80 mls/hr 04/06/25 11:30 04/06/25 23:51 Nss IV 04/09/25 11:29 80 mls/hr .[id number] ANGELIKA Administration Ondansetron HCl 4 mg 04/06/25 10:09 04/06/25 20:20 Ondansetron Inj 2 Mg/Ml 2 Ml Vial IV 05/06/25 10:08 4 mg Q6H PRN Administration Nausea And Vomiting Oxycodone HCl 5 mg 04/05/25 01:23 04/06/25 20:20 Oxycodone Hcl Ir 5 Mg Tab (Immediate Release) PO 04/19/25 01:22 EST 5 mg Q4H PRN Administration Pain Past Anesthesia History No Hx of Anesthesia Complications and No Family Hx of Anesthesia Complications History of PONV No Hx of PONV and No Hx of Motion Sickness NPO Date Last Intake of Fluids: 04/06/25 Time Last Intake of Fluids: 23:59 Date Last Intake of Solids: 04/06/25 Time Last Intake of Solids: 23:59 Home Medications Active Medications Generic Name Dose Route Start Last Admin Trade Name Freq PRN Reason Stop Dose Admin Acetaminophen 650 mg 04/05/25 01:23 04/06/25 23:20 Acetaminophen 325 Mg Tab PO 05/05/25 01:22 650 mg QID PRN Administration pain/fever Ceftriaxone Sodium 2,000 mg in 50 mls @ 100 mls/hr 04/05/25 09:00 04/06/25 09:03 Rocephin IV 04/15/25 08:59 Infused Q24H ANGELIKA Infusion Sodium Chloride 1,000 mls @ 80 mls/hr 04/06/25 11:30 04/06/25 23:51 Nss IV 04/09/25 11:29 80 mls/hr .[id number] ANGELIKA Administration Ondansetron HCl 4 mg 04/06/25 10:09 04/06/25 20:20 Ondansetron Inj 2 Mg/Ml 2 Ml Vial IV 05/06/25 10:08 4 mg Q6H PRN Administration Nausea And Vomiting Oxycodone HCl 5 mg 04/05/25 01:23 04/06/25 20:20 Oxycodone Hcl Ir 5 Mg Tab (Immediate Release) PO 04/19/25 01:22 EST 5 mg Q4H PRN Administration Pain Exercise / Class Metabolic Activity Metabolic Activity: II 4-5 Yardwork/Stairs/Walk up hill Physical Exam Constitutional: no acute distress Mouth: no dentition abnormality Thyromental Distance: > or= 3.5 Finger Breadths Mallampati Class: II Neck: + visual inspection normal Respiratory: + respiratory effort normal and + clear to auscultation bilaterally; no respiratory distress Cardiovascular: + regular rate and + regular rhythm; no murmur Musculoskeletal: no limited cervical ROM Psychiatric: + alert and + oriented x 3 ASA ASA2 Proposed Anesthesia Proposed Anesthesia: MAC Risk / Benefits Reviewed With: PT / POA / Parent / Guardian, Accepts Plan and Informed Consent Obtained
--- NOTE | 2025-04-07 10:34 | GI REPORT ---
[facility] Patient: CALOS MANZANO : 1965 Sex at : Female Age: 59 Years Procedure: Colonoscopy Date: 04/07/2025 Attending Physician: Ken Schmid MD Referring MD: Keith Zheng Md Indications: - Abdominal distress in the right lower quadrant - Abnormal CT of the GI tract Medications: - Monitored Anesthesia Care Complications: - No immediate complications. Estimated Blood Loss: - Estimated blood loss: None. Procedure: - Prior to the procedure, a History and Physical was performed, and patient medications and allergies were reviewed. The patient's tolerance of previous anesthesia was also reviewed. The risks and benefits of the procedure and the sedation options and risks were discussed with the patient. All questions were answered, and informed consent was obtained. Prior Anticoagulants: The patient has taken no anticoagulant or antiplatelet agents. ASA Grade Assessment: II - A patient with mild systemic disease. After reviewing the risks and benefits, the patient was deemed in satisfactory condition to undergo the procedure. - The pediatric colonoscope was introduced through the anus and advanced to the terminal ileum, with identification of the appendiceal orifice and ileocecal valve. - The colonoscopy was performed without difficulty. - The patient tolerated the procedure well. - The quality of the bowel preparation was good. - The terminal ileum, ileocecal valve, appendiceal orifice, and rectum were photographed. Findings: - A patchy area of the terminal ileum was congested. Biopsies were taken with a cold forceps for histology. - The exam was otherwise without abnormality on direct and retroflexion views. - Internal hemorrhoids were found during retroflexion. The hemorrhoids were small. - An area of moderately congested mucosa was found in the ascending colon and in the cecum. Biopsies were taken with a cold forceps for histology. The right colon including ascending colon and cecum was edematous congested and erythematous as if there was extrinsic infiltration happening. There was also narrowed in certain areas. There was no obvious mass or ulceration noted. These findings are very suggestive of an extrinsic process and mesenteric adenopathy causing partial obstruction and findings on CT. These are highly concerning for a B-cell lymphoma. She may need an IR guided biopsy if these biopsies which were sent [facility] are negative Impression: - Congested mucosa in the terminal ileum. Biopsied. - The examination was otherwise normal on direct and retroflexion views. - Internal hemorrhoids. - Congested mucosa in the ascending colon and in the cecum. Biopsied. - The right colon including ascending colon and cecum was edematous congested and erythematous as if there was extrinsic infiltration happening. There was also narrowed in certain areas. There was no obvious mass or ulceration noted. These findings are very suggestive of an extrinsic process and mesenteric adenopathy causing partial obstruction and findings on CT. These are highly concerning for a B-cell lymphoma. She may need an IR guided biopsy if these biopsies which were sent [facility] are negative Recommendation: - Discharge patient to home (ambulatory). - Resume previous diet. - Continue present medications. - Repeat colonoscopy date to be determined after pending pathology results are reviewed for surveillance based on pathology results. - Return to referring physician as previously scheduled. - Patient has a contact number available for emergencies. The signs and symptoms of potential delayed complications were discussed with the patient. Return to normal activities tomorrow. Written discharge instructions were provided to the patient. Procedure Code(s): - 39081, Colonoscopy, flexible; with biopsy, single or multiple Diagnosis Code(s): - R10.31, Right lower quadrant pain - R93.3, Abnormal findings on diagnostic imaging of other parts of digestive tract - K63.89, Other specified diseases of intestine - K64.8, Other hemorrhoids CPT(R) - 2023 copyright [employer]. All Rights Reserved. The CPT codes, CCI edits and ICD codes generated are intended as suggestions and were generated based on input data. These codes are preliminary and upon product design engineer review may be revised to meet current compliance and payer requirements. The provider is responsible for the final determination of appropriate codes, and modifiers. Ken Schmid MD This document has been electronically signed. Note Initiated:04/07/2025 Note Completed:04/07/2025 10:33 AM \\[email or web address]\Central\InterfaceData\Data\Provation\Results\LIVE\[id number]
[2025-04-07] MEDS: POTASSIUM CHLORIDE / WTR 10 MEQ/100 ML PLCT IV SCH (11:17)
[2025-04-07] MEDS: LIDOCAINE 2% 2 ML VIAL/AMP(20MG/ML) INFIL ONE (11:21)
[2025-04-07] MEDS: PROPOFOL IV EMULSION 10 MG/ML 20 ML VIAL IV ONE (11:22)
--- NOTE | 2025-04-07 14:25 | Anesthesiology Progress Note ---
Date of Service April 07, 2025 Anesthesia Post Procedure Vital Signs Vital Signs: Temp Pulse Resp BP Pulse Ox O2 Del Method 04/07/25 10:42 84 16 113/73 98 Room Air 04/07/25 10:29 81 16 115/72 99 Room Air 04/07/25 10:15 76 16 94/62 L 97 Room Air 04/07/25 09:35 37.2 C 90 16 120/72 96 Room Air 04/07/25 07:28 37.9 C H 86 18 100/68 98 Room Air 04/07/25 02:37 37.0 C 04/06/25 22:45 37.9 C H 93 H 16 113/75 96 Room Air 04/06/25 20:20 Room Air 04/06/25 17:09 36.8 C 04/06/25 14:44 37.8 C H 90 18 116/76 98 Room Air Pain Intensity Lower Abdomen: Pain Intensity: 6 Transfer of Care Handoff Completed per policy Notes Mental Status: alert / awake / arousable and participated in evaluation Nausea / Vomiting: adequately controlled Pain: adequately controlled Airway Patency, RR, SpO2: stable & adequate BP & HR: stable & adequate Hydration State: stable & adequate Anesthetic Complications: no major complications apparent and Pt Satisfied with anesthetic care
--- NOTE | 2025-04-07 14:31 | Hospitalist Progress Note ---
Date of Service April 07, 2025 Assessment & Plan (1) Abdominal pain: Plan: Suspected Cecal mass/Colitis --cannot rule out neoplasm DD:Lymphoma Suspected malignant ascites --CT ABD: Diffuse severe right colon wall thickening with surrounding infilt ration. Masslike soft tissue density in the medial aspect of the cecum. Diffuse ascites. Extensive predominantly abdominal mesenteric and retroperitoneal lymphadenopathy. Findings are suspicious for a right colon/cecal neoplasm occluding a carcinoma or lymphoma versus severe colitis. Appendix is identified and is without evidence for acute appendicitis. --CEA antigen 0.5 --S/P Colonoscopy: Congested mucosa in the terminal ileum. Biopsied. The examination was otherwise normal on direct and retroflexion views. Internal hemorrhoids. Congested mucosa in the ascending colon and in the cecum. Biopsied. The right colon including ascending colon and cecum was edematous congested and erythematous as if there was extrinsic infiltration happening. There was also narrowed in certain areas. There was no obvious mass or ulceration noted. These findings are very suggestive of an extrinsic process and mesenteric adenopathy causing partial obstruction and findings on CT. These are highly concerning for a B-cell lymphoma. She may need an IR guided biopsy if these biopsies which were sent [facility] are negative -- Pathology pending --Blood culture: Negative to date --Urine culture negative IR paracentesis attempted-- no significant ascites + Fecal occult --Stool PCR, stool for C. difficile negative Appreciate surgery, GI input Liquid diet today Consulted oncology and IR for lymph node biopsy Iron deficiency anemia No acute bleeding issues +FOBT Will start on iron supplements as able Abnormal UA Microscopic hematuria Ruled out UTI --Urine Culture: negative Empirically on Rocephin as above May need Urology eval as outpatient DVT Px: SCDs for now Re: Anemia, +FOBT Code status Full code Family: Mr. Mike Cat ([place]), contact #[phone]. Admission and Anticipated Discharge Date Admission Date: April 05, 2025 Subjective Patient is seen and examined at bedside Patient had colonoscopy earlier today Reports nausea and abdominal discomfort Patient's family at bedside Denies any chest pain, dyspnea, dizziness Review of Systems Review of Systems: All systems reviewed & are unremarkable except as noted in Subjective Physical Exam Physical Exam: Physical Exam: Vitals signs as noted above General Appearance:Moderately built and nourished, no apparent distress Head: normocephalic, Atraumatic Eyes: normal inspection, EOMI Neck: supple, Trachea midline Respiratory/Chest: Normal breath sounds, CTA, No accessory muscle use Cardiovascular: S1, S2, No murmur Abdomen/GI:Soft, tenderness epigastric, hypogastric, right lower quadrant and some upper quadrant, normal bowel sounds, no guarding or rigidity. Extremities/Musculoskeletal:normal inspection, no edema Neurologic/Psych:AAOX3, grossly no focal neurological deficits Skin: normal color, warm Results & Data Results & Data Vital Signs (Past 12 Hours) Vital Signs Temp Pulse Resp BP Pulse Ox O2 Del Method 04/07/25 10:42 84 16 113/73 98 Room Air 04/07/25 10:29 81 16 115/72 99 Room Air 04/07/25 10:15 76 16 94/62 L 97 Room Air 04/07/25 09:35 37.2 C 90 16 120/72 96 Room Air 04/07/25 07:28 37.9 C H 86 18 100/68 98 Room Air 04/07/25 02:37 37.0 C Laboratory Results Short CBC 04/07/25 Range/Units 06:51 WBC 5.89 (4.8-10.8) K/ul Hgb 9.8 L (12.0-16.0) g/dl Hct 29.9 L (37.0-47.0) % Plt Count 97 L (130-400) K/uL BMP 04/07/25 06:51 Sodium 143 Potassium 3.4 L Chloride 112 H Carbon Dioxide 19 L BUN 13 Creatinine 0.57 L Glucose 83 Calcium 7.8 L
--- NOTE | 2025-04-07 16:21 | Oncology Consultation ---
Date of Consultation April 07, 2025 Assessment & Plan (1) Malignancy: At this point I will wait for report from the colonoscopy pathology to make further recommendations for the patient. Once I have the pathology report, I would recommend better the patient needs Plan any urgent institution of chemotherapy thank you for this interesting hematological consult. Medical oncology will continue to follow the patient and make appropriate recommendations. History of Present Illness Reason for Consultation: Possible lymphoma intra-abdominal malignancy Attending Physician: Keith Zheng MD History of Present Illness CT Abdomen Pelvis; 04/04/2025: IMPRESSION: Diffuse severe right colon wall thickening with surrounding infiltration. Masslike soft tissue density in the medial aspect of the cecum. Diffuse ascites. Extensive predominantly abdominal mesenteric and retroperitoneal lymphadenopathy. Findings are suspicious for a right colon/cecal neoplasm occluding a carcinoma or lymphoma versus severe colitis. Appendix is identified and is without evidence for acute appendicitis. Colonoscopy; 04/05/2025: Impression: - Congested mucosa in the terminal ileum. Biopsied. - The examination was otherwise normal on direct and retroflexion views. - Internal hemorrhoids. - Congested mucosa in the ascending colon and in the cecum. Biopsied. - The right colon including ascending colon and cecum was edematous congested and erythematous as if there was extrinsic infiltration happening. There was also narrowed in certain areas. There was no obvious mass or ulceration noted. These findings are very suggestive of an extrinsic process and mesenteric adenopathy causing partial obstruction and findings on CT. These are highly concerning for a B-cell lymphoma. She may need an IR guided biopsy if these biopsies which were sent [facility] are negative the patient is a very pleasant 59-year-old woman who speaks Mandarin primarily, comes to the [facility] with abdominal pain. she had colonoscopy on 04/05/2025 final pathology still pending. Allergies Allergy/AdvReac Type Severity Reaction Status Date / Time No Known Allergies Allergy Unverified 04/04/25 22:40 Home Medications Medication Instructions Recorded Confirmed Type ferrous sulfate 325 mg (65 mg 325 mg PO QAM #30 tabs 04/09/25 04/10/25 Rx iron) tablet,delayed release ondansetron HCl 4 mg tablet 4 mg PO Q8H PRN nausea and 04/09/25 04/10/25 Rx vomiting 7 days #30 tabs oxycodone 5 mg tablet 5 mg PO Q8H PRN pain #20 tabs 10/23/25 10/24/25 Rx Patient History Social History Smoking Status: Never smoker Hx Alcohol Use: No Hx Substance Use: No Preferred Language: Mandarin Kiswahili Communication Ability: Effective Communication Tools: IPad Mail Clerks Supervisor Required: Yes and Video Beliefs That Will Affect Care: None Current Living Situation: Spouse Feels Safe at Home: Yes Assistive Devices: None Review of Systems Review of Systems: All systems reviewed & are unremarkable except as noted in HPI & below Constitutional: as per Subjective / HPI Eyes: as per Subjective / HPI Ear, Nose, Mouth, Throat: as per Subjective / HPI Respiratory: as per Subjective / HPI Cardiovascular: as per Subjective / HPI Gastrointestinal: as per Subjective / HPI Genitourinary: as per Subjective / HPI Musculoskeletal: as per Subjective / HPI Integumentary: as per Subjective / HPI Neurologic: as per Subjective / HPI Psychiatric: as per Subjective / HPI Endocrine: as per Subjective / HPI Physical Exam Constitutional: WD/WN, vitals as above Eyes: PERRL, conjunctivae normal, anicteric sclerae ENMT: external ear and nose normal, oropharynx normal Neck: trachea midline, no thyromegaly Respiratory: normal respiratory effort, lungs clear to auscultation Cardiovascular: RRR, no murmur, no edema Gastrointestinal (Abdomen): normal bowel sounds, soft, nontender, no hepatosplenomegaly Musculoskeletal: no cyanosis or clubbing, extremities motor strength 5/5 Skin: no rashes, warm and dry Neurologic: patellar DTR's 2+ bilat, sensation intact Psychiatric: A+Ox3, euthymic affect Results & Data Vital Signs (Past 12 Hours) Vital Signs Temp Pulse Resp BP Pulse Ox O2 Del Method 04/07/25 10:42 84 16 113/73 98 Room Air 04/07/25 10:29 81 16 115/72 99 Room Air 04/07/25 10:15 76 16 94/62 L 97 Room Air 04/07/25 09:35 37.2 C 90 16 120/72 96 Room Air 04/07/25 07:28 37.9 C H 86 18 100/68 98 Room Air
[2025-04-08 07:23] LABS: Hematocrit (blood only) 29.1 % (37.0-47.0); Hemoglobin 9.8 g/dl (12.0-16.0); Mean Corpuscular Hemoglobin 29.5 pg (25.0-34.0); Mean Corpuscular Volume 87.7 fL (80.0-100.0); Platelet Count 93 K/uL (130-400); RDW Standard Deviation 46.0 fL (36.4-46.3); Red Blood Count 3.32 M/uL (4.20-5.40); White Blood Count 5.94 K/ul (4.8-10.8)
[2025-04-08 07:42] LABS: Anion Gap 9.0 (3-11); Blood Urea Nitrogen 12.0 mg/dl (6-23); Calcium 7.6 mg/dl (8.6-10.3); Carbon Dioxide 20.0 mmol/L (21-32); Chloride 110.0 mmol/L (98-107); Creatinine Clr Calc Pharmacy 101.5 ml/min; Glucose 118.0 mg/dl (70-99(Fasting)); Potassium 3.4 mmol/L (3.5-5.1); Sodium 139.0 mmol/L (136-145)
[2025-04-08] MEDS: POTASSIUM CHLORIDE 10 MEQ TABCR PO ONE (10:01)
[2025-04-08] MEDS: POTASSIUM CHLORIDE / WTR 10 MEQ/100 ML PLCT IV SCH (10:30)
--- NOTE | 2025-04-08 12:35 | Gastroenterology Progress Note ---
Date of Service April 08, 2025 Assessment & Plan (1) Mass of cecum: (2) Abdominal pain: Plan 59yo [place] female with abdominal pain x 1 month with cecal mass, adenopathy and ascites. Hgb improved today at 10.9g/dl. Stool PCR and C.diff negative. Unable to tap ascites d/t low volume. (1) Cecal Mass with mesenteric adenopathy. - CEA levels 0.5 - normal. - Colonoscopy 04/07/25 - No obvious mass or ulceration. Areas of narrowing noted, but likely from extrinsic source. Biopsies obtained but are suspected to be non-diagnostic. Path is pending at this time. - Recommend f/u with IR for biopsy with Oncology f/u for concern of lymphoma. - Thank you for allowing us to participate in the care of this patient. Please call with any acute changes, questions or concerns. Please see addendum below with additional recommendation from my supervising physician. Admission and Anticipated Discharge Date Admission Date: April 05, 2025 Subjective 59yo Mandarin speaking female is seen today for abdominal discomfort x 1 month with cecal mass and ascites on imaging. History assisted from family. She reported increased abdominal discomfort with sensation of constipation x 1 month. This progressed in severity leading to a ER visit. CT revealed a cecal mass with mesenteric adenopathy and ascites. Underwent colonoscopy 04/07/25 with biopsies obtained for further evaluation. However no obvious cecal mass was noted at stricture point. History concerning for lymphoma and it was recommended that she undergo further evaluation with Oncology and IR for LN biopsies. She denies any weight loss, hematemesis, abdominal pain, melena or hematochezia. Family history - Negative for Colorectal CA, IBD or celiac disease. Social History - No tobacco, alcohol or drug use. Pertinent diagnostics Review of Systems Review of Systems: See HPI Physical Exam Physical Exam: Constitutional: NAD. Alert. Answering questions appropriately. Respiratory: Breathing is even, non-labored. Lungs vora are clear to auscultation anteriorly. Cardiovascular: Regular Rate and Rhythm, no murmurs, rubs or gallops appreciated. Gastrointestinal (Abdomen): Normoactive bowel sounds x4, soft, non-distended, non-tender. Musculoskeletal: Lying in bed comfortably. No peripheral edema. Results & Data Results & Data Vital Signs (Past 12 Hours) Vital Signs Temp Pulse Resp BP Pulse Ox O2 Del Method 04/08/25 07:56 99.0 F 90 18 116/74 96 Room Air PG Care Time/CCT Total # of Minutes Spent Total Time Spent with Patient: Total time spent is greater than 50% in coordination of care (as documented) at patient's floor/unit and/or counseling patient: I personally saw and examined the patient. I have reviewed the chart and agree with the documentation provided by the DRAWER [facility]PFITTER including discussion about the assessment, treatment and plan. Briefly, she is feeling about the same with some distention but no pain. Her path is pending but I do not anticipate a lot of results as the narrowing in the ascending colon and cecum is from extrinsic compression likely from the mesenteric lymphadenopathy and scarring. My concern is for lymphoma as her CEA is also negative. At this point if the path is unrevealing, tissue is the issue and she will need IR guided biopsy of the lymph node conglomerate Coding Level of Care Code 63235 SUB INP/OBS CARE 2/35MIN Diagnoses Mass of cecum K63.89 Abdominal pain R10.9
--- NOTE | 2025-04-08 12:52 | Hospitalist Progress Note ---
Date of Service April 08, 2025 Assessment & Plan (1) Abdominal pain: Plan: Suspected Cecal mass/Colitis --cannot rule out neoplasm DD:Lymphoma Suspected malignant ascites --CT ABD: Diffuse severe right colon wall thickening with surrounding infilt ration. Masslike soft tissue density in the medial aspect of the cecum. Diffuse ascites. Extensive predominantly abdominal mesenteric and retroperitoneal lymphadenopathy. Findings are suspicious for a right colon/cecal neoplasm occluding a carcinoma or lymphoma versus severe colitis. Appendix is identified and is without evidence for acute appendicitis. --CEA antigen 0.5 --S/P Colonoscopy: Congested mucosa in the terminal ileum. Biopsied. The examination was otherwise normal on direct and retroflexion views. Internal hemorrhoids. Congested mucosa in the ascending colon and in the cecum. Biopsied. The right colon including ascending colon and cecum was edematous congested and erythematous as if there was extrinsic infiltration happening. There was also narrowed in certain areas. There was no obvious mass or ulceration noted. These findings are very suggestive of an extrinsic process and mesenteric adenopathy causing partial obstruction and findings on CT. These are highly concerning for a B-cell lymphoma. She may need an IR guided biopsy if these biopsies which were sent [facility] are negative -- Pathology pending --Blood culture: Negative to date --Urine culture negative IR paracentesis attempted-- no significant ascites + Fecal occult --Stool PCR, stool for C. difficile negative Appreciate surgery, GI input Advance diet to low fiber today Discussed with interventional radiology --unable to biopsy Await oncology input Iron deficiency anemia No acute bleeding issues +FOBT Will start on iron supplements as able Abnormal UA Microscopic hematuria Ruled out UTI --Urine Culture: negative Empirically on Rocephin as above May need Urology eval as outpatient DVT Px: SCDs for now Re: Anemia, +FOBT Code status Full code Family: Mr. Mike Cat ([place]), contact #[phone]. Admission and Anticipated Discharge Date Admission Date: April 05, 2025 Subjective Patient is seen and examined at bedside Tolerating current diet Still has nausea but no vomiting and some abdominal discomfort Discussed in detail with patient's family at bedside Denies any chest pain, dyspnea, dizziness No other complaints today Review of Systems Review of Systems: All systems reviewed & are unremarkable except as noted in Subjective Physical Exam Physical Exam: Physical Exam: Vitals signs as noted above General Appearance:Moderately built and nourished, no apparent distress Head: normocephalic, Atraumatic Eyes: normal inspection, EOMI Neck: supple, Trachea midline Respiratory/Chest: Normal breath sounds, CTA, No accessory muscle use Cardiovascular: S1, S2, No murmur Abdomen/GI:Soft, tenderness epigastric, hypogastric, right lower quadrant and some upper quadrant, normal bowel sounds, no guarding or rigidity. Extremities/Musculoskeletal:normal inspection, no edema Neurologic/Psych:AAOX3, grossly no focal neurological deficits Skin: normal color, warm Results & Data Results & Data Vital Signs (Past 12 Hours) Vital Signs Temp Pulse Resp BP Pulse Ox O2 Del Method 04/08/25 07:56 37.2 C 90 18 116/74 96 Room Air Laboratory Results Short CBC 04/08/25 Range/Units 06:55 WBC 5.94 (4.8-10.8) K/ul Hgb 9.8 L (12.0-16.0) g/dl Hct 29.1 L (37.0-47.0) % Plt Count 93 L (130-400) K/uL BMP 04/08/25 06:55 Sodium 139 Potassium 3.4 L Chloride 110 H Carbon Dioxide 20 L BUN 12 Creatinine 0.50 L Glucose 118 H Calcium 7.6 L
[2025-04-08] MEDS: PROMETHAZINE 6.25 MG/50.25 ML BAG IV STA (17:32)
[2025-04-09 07:07] VITALS: RESP 19; TEMP 99; O2SAT 94
[2025-04-09 07:29] LABS: Anion Gap 8.0 (3-11); Blood Urea Nitrogen 10.0 mg/dl (6-23); Calcium 7.3 mg/dl (8.6-10.3); Carbon Dioxide 21.0 mmol/L (21-32); Chloride 109.0 mmol/L (98-107); Creatinine Clr Calc Pharmacy 101.5 ml/min; Glucose 114.0 mg/dl (70-99(Fasting)); Magnesium 1.7 mg/dl (1.7-2.4); Potassium 3.6 mmol/L (3.5-5.1); Sodium 138.0 mmol/L (136-145)
--- NOTE | 2025-04-09 11:30 | Hospitalist Progress Note ---
Date of Service April 09, 2025 Assessment & Plan (1) Abdominal pain: Plan: Suspected Cecal mass/Colitis --cannot rule out neoplasm DD:Lymphoma Suspected malignant ascites --CT ABD: Diffuse severe right colon wall thickening with surrounding infilt ration. Masslike soft tissue density in the medial aspect of the cecum. Diffuse ascites. Extensive predominantly abdominal mesenteric and retroperitoneal lymphadenopathy. Findings are suspicious for a right colon/cecal neoplasm occluding a carcinoma or lymphoma versus severe colitis. Appendix is identified and is without evidence for acute appendicitis. --CEA antigen 0.5 --S/P Colonoscopy: Congested mucosa in the terminal ileum. Biopsied. The examination was otherwise normal on direct and retroflexion views. Internal hemorrhoids. Congested mucosa in the ascending colon and in the cecum. Biopsied. The right colon including ascending colon and cecum was edematous congested and erythematous as if there was extrinsic infiltration happening. There was also narrowed in certain areas. There was no obvious mass or ulceration noted. These findings are very suggestive of an extrinsic process and mesenteric adenopathy causing partial obstruction and findings on CT. These are highly concerning for a B-cell lymphoma. She may need an IR guided biopsy if these biopsies which were sent [facility] are negative -- Pathology pending --Blood culture: Negative to date --Urine culture negative IR paracentesis attempted-- no significant ascites + Fecal occult --Stool PCR, stool for C. difficile negative Appreciate surgery, GI input Tolerating low fiber diet Discussed with interventional radiology --unable to biopsy Oncology evaluation requested Plan to discharge home today Advised to follow-up with oncology as outpatient Iron deficiency anemia No acute bleeding issues +FOBT Started on iron supplement Abnormal UA Microscopic hematuria Ruled out UTI --Urine Culture: negative Empirically received Rocephin May need Urology eval as outpatient DVT Px: SCDs for now Re: Anemia, +FOBT Code status Full code Family: Mr. Mike Cat ([place]), contact #[phone]. Disposition Home Admission and Anticipated Discharge Date Admission Date: April 05, 2025 Subjective Patient is seen and examined at bedside No new complaints Tolerating current diet Still has some nausea and abdominal discomfort Discussed with patient's family at bedside Plan to be discharged home today Review of Systems Review of Systems: All systems reviewed & are unremarkable except as noted in Subjective Physical Exam Physical Exam: Physical Exam: Vitals signs as noted above General Appearance:Moderately built and nourished, no apparent distress Head: normocephalic, Atraumatic Eyes: normal inspection, EOMI Neck: supple, Trachea midline Respiratory/Chest: Normal breath sounds, CTA, No accessory muscle use Cardiovascular: S1, S2, No murmur Abdomen/GI:Soft, mild tender, normal bowel sounds, no guarding or rigidity. Extremities/Musculoskeletal:normal inspection, no edema Neurologic/Psych:AAOX3, grossly no focal neurological deficits Skin: normal color, warm Results & Data Results & Data Vital Signs (Past 12 Hours) Vital Signs Temp Pulse Resp BP Pulse Ox O2 Del Method 04/09/25 07:06 37.2 C 92 H 19 106/70 94 Room Air Laboratory Results [facility] 04/09/25 06:41 Sodium 138 Potassium 3.6 Chloride 109 H Carbon Dioxide 21 BUN 10 Creatinine 0.50 L Glucose 114 H Calcium 7.3 L
--- NOTE | 2025-04-09 11:46 | Discharge Summary ---
Date of Service April 09, 2025 Admission HPI Per Admitting Provider History obtained from patient, family, and records. Limited history from patient secondary to language barrier. No significant medical history. 1 month history of achy lower abdominal discomfort. Some nausea symptoms. No black/bloody stools. Poor appetite without weight loss. Intermittent relief of [id number] NSAID. In the last 2 weeks, patient noted increased abdominal distention associated with intermittent fever, chills with some night sweats following NSAID Rx. Patient brought to ER for evaluation by family for worsening symptoms. Medical History as above Last colonoscopy was in [place] more than 10 years ago as per family ("possible pockets") Surgical History : None Family History : No DM, no heart disease, no stroke no colon cancer, no lymphoma Personal/Social history : Non-smoker, no EtOH intake, businesswoman Admission Exam Per Admitting Provider GENERAL: Comfortable, pleasant, no respiratory distress SKIN: Normal color, warm HEENT: [place] palpebral conjunctivae, no ptosis, dry buccal mucosa NECK : Supple, no tenderness CHEST : CTA, no tenderness HEART : RRR, no obvious murmurs ABDOMEN: Some distention, hypogastric tenderness EXTREMITIES : No LE swelling/tenderness, palpable pulses, no other conspicuous deformities noted NEUROLOGIC : Coherent, no facial asymmetry, no other gross focality Principal Diagnosis Cecal mass with mesenteric adenopathy Suspected lymphoma Ascites Iron deficiency anemia Discharge Data Allergies Allergy/AdvReac Type Severity Reaction Status Date / Time No Known Allergies Allergy Unverified 04/04/25 22:40 Consultations 04/05/25 00:33 Consult General Surgery Routine 04/05/25 00:36 ED Decision to Admit Stat 04/05/25 01:24 Consult Gastroenterology Routine 04/07/25 10:59 Consult Oncology Routine Procedures Performed Operation Date: 04/07/25 16:30 Actual Procedures p Colonoscopy Biopsy Cytology - Ken Schmid MD Ordered Studies Laboratory Results WBC 5.94 K/ul (4.8-10.8) 04/08/25 06:55 RBC 3.32 M/uL (4.20-5.40) L 04/08/25 06:55 Hgb 9.8 g/dl (12.0-16.0) L 04/08/25 06:55 Hct 29.1 % (37.0-47.0) L 04/08/25 06:55 MCV 87.7 fL (80.0-100.0) 04/08/25 06:55 MCH 29.5 pg (25.0-34.0) 04/08/25 06:55 MCHC 33.7 g/dL (32.0-36.0) 04/08/25 06:55 RDW Std Deviation 46.0 fL (36.4-46.3) 04/08/25 06:55 RDW Coeff of Albertina 14.3 % (11.5-14.5) 04/08/25 06:55 Plt Count 93 K/uL (130-400) L 04/08/25 06:55 MPV 10.1 fL (9.4-12.4) 04/08/25 06:55 Immature Gran % (Auto) 0.6 % 04/05/25 06:33 Neut % (Auto) 61.3 % 04/05/25 06:33 Lymph % (Auto) 16.1 % 04/05/25 06:33 [place] % (Auto) 21.6 % 04/05/25 06:33 Eos % (Auto) 0.2 % 04/05/25 06:33 Baso % (Auto) 0.2 % 04/05/25 06:33 Reticulocyte % (Auto) 2.29 % (0.50-2.00) H 04/05/25 06:33 Neut # (Auto) 3.33 K/uL (1.40-6.50) 04/05/25 06:33 Lymph # (Auto) 0.87 K/uL (1.20-3.40) L 04/05/25 06:33 [place] # (Auto) 1.17 K/uL (0.11-0.59) H 04/05/25 06:33 Eos # (Auto) 0.01 K/uL (0.00-0.50) 04/05/25 06:33 Baso # (Auto) 0.01 K/uL (0.00-0.20) 04/05/25 06:33 Reticulocyte # 0.080 10^6/uL (0.020-0.100) 04/05/25 06:33 Immature Gran # (Auto) 0.03 K/uL (0.01-0.20) 04/05/25 06:33 PT 12.2 Seconds (9.0-12.0) H 04/04/25 22:03 INR 1.2 (0.9-1.1) H 04/04/25 22:03 Sodium 138 mmol/L (136-145) 04/09/25 06:41 Potassium 3.6 mmol/L (3.5-5.1) 04/09/25 06:41 Chloride 109 mmol/L (98-107) H 04/09/25 06:41 Carbon Dioxide 21 mmol/L (21-32) 04/09/25 06:41 Anion Gap 8 (3-11) 04/09/25 06:41 BUN 10 mg/dl (6-23) 04/09/25 06:41 Creatinine 0.50 mg/dl (0.6-1.2) L 04/09/25 06:41 Est Cr Clr Drug Dosing 101.5 ml/min 04/09/25 06:41 eGFR 108.65 04/09/25 06:41 BUN/Creatinine Ratio 20.0 (10-20) 04/09/25 06:41 Glucose 114 mg/dl (70-99(Fasting)) H 04/09/25 06:41 Estimat Average Glucose 111 mg/dl 04/05/25 06:33 Hemoglobin A1c 5.5 % (4.5-5.6) 04/05/25 06:33 Lactate 1.4 mmol/L (0.4-2.0) 04/04/25 22:47 Calcium 7.3 mg/dl (8.6-10.3) L 04/09/25 06:41 Magnesium 1.7 mg/dl (1.7-2.4) 04/09/25 06:41 Iron 16 mcg/dl (35-150) L 04/05/25 06:33 Transferrin 139 mg/dl (200-360) L 04/05/25 06:33 Ferritin 668.0 ng/ml (8-388) H 04/05/25 06:33 Total Bilirubin 0.6 mg/dl (0.2-1.0) 04/04/25 22:03 AST 34 U/L (13-39) 04/04/25 22:03 ALT 17 U/L (7-52) 04/04/25 22:03 Alkaline Phosphatase 65 U/L (34-104) 04/04/25 22:03 Lactate Dehydrogenase 428 U/L (86-244) H 04/05/25 06:33 Total Protein 6.5 gm/dl (6.0-8.3) 04/04/25 22:03 Albumin 3.6 gm/dl (3.4-5.0) 04/04/25 22:03 Globulin 2.9 gm/dl (2.5-4.0) 04/04/25 22:03 Albumin/Globulin Ratio 1.2 (0.9-2) 04/04/25 22:03 Lipase 10 U/L (11-82) L 04/04/25 22:03 Carcinoembryonic Ag 0.5 ng/ml (0-2.5) 04/05/25 06:33 Vitamin B12 477 pg/ml (180-914) 04/05/25 06:33 Folate > 22.30 ng/ml (>5.38) 04/05/25 06:33 Procalcitonin 0.55 ng/ml (0-0.5) H 04/04/25 22:03 TSH 2.085 uIu/ml (0.300-4.500) 04/05/25 06:33 Urine Color Yellow 04/04/25 21:49 Urine Appearance Clear (Clear) 04/04/25 21:49 Urine pH 7.0 (4.5-7.5) 04/04/25 21:49 Ur Specific [place] 1.020 (1.000-1.030) 04/04/25 21:49 Urine Protein 1+ (Negative) H 04/04/25 21:49 Urine Glucose (UA) Negative (Negative) 04/04/25 21:49 Urine Ketones 1+ (Negative) H 04/04/25 21:49 Urine Blood 3+ (Negative) H 04/04/25 21:49 Urine Nitrite Negative (Negative) 04/04/25 21:49 Urine Bilirubin 1+ (Negative) H 04/04/25 21:49 Urine Urobilinogen Negative (Negative) 04/04/25 21:49 Ur Leukocyte Esterase Negative (Negative) 04/04/25 21:49 Urine RBC 0-2 /hpf (0-2) 04/04/25 21:49 Urine WBC 0-5 /hpf (0-5) 04/04/25 21:49 Ur Epithelial Cells 0-2 /hpf (0-2) 04/04/25 21:49 Urine Bacteria 1+ (None Seen) H 04/04/25 21:49 Urine Mucus Present (None Prsent) A 04/04/25 21:49 Urine Comment 04/04/25 21:49 Stool Occult Bld Scrn Positive (Negative) A 04/05/25 20:34 Stl C. cayetanensis PCR Not Detected (NotDetected) 04/05/25 20:34 Stool Rotavirus A PCR Not Detected (NotDetected) 04/05/25 20:34 Stl Adenov F 40 PCR Not Detected (NotDetected) 04/05/25 20:34 Stool Astrovirus (PCR) Not Detected (NotDetected) 04/05/25 20:34 Stool Campylobacter PCR Not Detected (NotDetected) 04/05/25 20:34 Stl C. diff Tox B Gene Negative Cdiff Gene (Neg) 04/06/25 10: Stl C. diff 027-NAP1-BI NEGATIVE 04/06/25 10:25 Stool Cryptosporidium PCR Not Detected (NotDetected) 04/05/25 20:34 Stl E.coli Shiga Tox PCR Not Detected (NotDetected) 04/05/25 20:34 Stl Enterotoxigenic E PCR Not Detected (NotDetected) 04/05/25 20:34 Stool EPEC (PCR) Not Detected (NotDetected) 04/05/25 20:34 Stool EAEC (PCR) Not Detected (NotDetected) 04/05/25 20:34 Stl E. histolytica PCR Not Detected (NotDetected) 04/05/25 20:34 Stool Giardia Lamblia PCR Not Detected (NotDetected) 04/05/25 20:34 Stool Salmonella PCR Not Detected (NotDetected) 04/05/25 20:34 Stool Sapovirus (PCR) Not Detected (NotDetected) 04/05/25 20:34 Stl P. shigelloides PCR Not Detected (NotDetected) 04/05/25 20:34 Stl Shigella/EIEC PCR Not Detected (NotDetected) 04/05/25 20:34 St Y.enterocolitica PCR Not Detected (NotDetected) 04/05/25 20:34 Stool Vibrio (PCR) Not Detected (NotDetected) 04/05/25 20:34 Stl Vibrio cholerae PCR Not Detected (NotDetected) 04/05/25 20:34 Stl Norovirus GI/GII PCR Not Detected (NotDetected) 04/05/25 20:34 Adenovirus (PCR) Not Detected (NotDetected) 04/04/25 22:47 B. pertussis DNA (PCR) Not Detected (NotDetected) 04/04/25 22:47 B.parapertussis DNA PCR Not Detected (NotDetected) 04/04/25 22:47 C. pneumoniae DNA (PCR) Not Detected (NotDetected) 04/04/25 22:47 Coronavirus OC43 (PCR) Not Detected (NotDetected) 04/04/25 22:47 Coronavirus HKU1 (PCR) Not Detected (NotDetected) 04/04/25 22:47 Coronavirus 229E (PCR) Not Detected (NotDetected) 04/04/25 22:47 SARS-CoV-2 (PCR) Not Detected (NotDetected) 04/04/25 22:47 Coronavirus NL63 (PCR) Not Detected (NotDetected) 04/04/25 22:47 Human Metapneumovir PCR Not Detected (NotDetected) 04/04/25 22:47 Influenza Type A (PCR) Not Detected (NotDetected) 04/04/25 22:47 Influenza Type B (PCR) Not Detected (NotDetected) 04/04/25 22:47 M. pneumoniae (PCR) Not Detected (NotDetected) 04/04/25 22:47 Parainfluenza 1 (PCR) Not Detected (NotDetected) 04/04/25 22:47 Parainfluenza 2 (PCR) Not Detected (NotDetected) 04/04/25 22:47 Parainfluenza 3 (PCR) Not Detected (NotDetected) 04/04/25 22:47 Parainfluenza 4 (PCR) Not Detected (NotDetected) 04/04/25 22:47 RSV (PCR) Not Detected (NotDetected) 04/04/25 22:47 Entero/Rhino (PCR) Not Detected (NotDetected) 04/04/25 22:47 Impressions Abdomen/Pelvis CT 04/04/25 22:22 Exam(s): CT ABDOMEN + PELVIS With Contrast IV Amt: 93 cc opti 320 EXAM: CT Abdomen and Pelvis With Intravenous Contrast CLINICAL HISTORY: abd pain; fevers. TECHNIQUE: Axial computed tomography images of the abdomen and pelvis with intravenous contrast. CTDI is 8.36 mGy and DLP is 395.3 mGy-cm. Automated exposure control was utilized for the study. A dose lowering technique was utilized adhering to the principles of ALARA. CONTRAST: Patient received 93 cc opti 320 of IV contrast COMPARISON: No relevant prior studies available. FINDINGS: Lung bases: Unremarkable. No mass. No consolidation. ABDOMEN: Liver: Unremarkable. No mass. Gallbladder and bile ducts: Unremarkable. No calcified stones. No ductal dilation. Pancreas: Unremarkable. No mass. No ductal dilation. Spleen: Unremarkable. No splenomegaly. Adrenals: Unremarkable. No mass. Kidneys and ureters: No obstructive uropathy. No obstructing renal or ureteral calculi. No hydronephrosis or hydroureter. Stomach and bowel: Mild diffuse abdominal and moderate pelvic free fluid. No free intraperitoneal gas. Air-fluid levels in top-normal caliber small bowel. Distal small bowel wall thickening. Right lower quadrant distal small bowel marked wall thickening versus mesenteric mass 2.4 x 2.8 cm. Ill-defined right colon with diffuse transverse, left and sigmoid colon are normal in caliber. Marked wall thickening and a focal masslike soft tissue density at the medial aspect of the cecum 5.9 x 5 x 3.9 cm. Mild surrounding infiltration. Probable appendix is identified and is normal in appearance. No evidence for diverticulitis. PELVIS: Appendix: No findings to suggest acute appendicitis. Bladder: Unremarkable. No mass. Reproductive: Uterus is identified. Ovaries are not distinctly visualized. ABDOMEN and PELVIS: Bones/joints: No acute fracture. Degenerative changes of the spine. Soft tissues: Unremarkable. Vasculature: Atherosclerotic vascular calcifications. No abdominal aortic aneurysm. Lymph nodes: Abdominal periaortic/retroperitoneal lymphadenopathy up to 1.7 x 1.8 cm. Mesenteric lymphadenopathy greatest in the right lower quadrant with the above-described possible ollie mass versus other soft tissue mass. IMPRESSION: Diffuse severe right colon wall thickening with surrounding infiltration. Masslike soft tissue density in the medial aspect of the cecum. Diffuse ascites. Extensive predominantly abdominal mesenteric and retroperitoneal lymphadenopathy. Findings are suspicious for a right colon/cecal neoplasm occluding a carcinoma or lymphoma versus severe colitis. Appendix is identified and is without evidence for acute appendicitis. Electronically signed by: Florian Cronin M.D. 04/05/25 00:01 AM Chest X-Ray 04/05/25 00:41 EXAM: XR chest 1V portable CLINICAL HISTORY: Fever, hyponatremia. TECHNIQUE: An X-ray image of the chest was obtained in the AP projection. COMPARISON: No prior studies are available for comparison. FINDINGS: Pulmonary Parenchyma: The lungs are clear bilaterally. There is no evidence of consolidation, collapse, or focal opacities. No pulmonary nodules are identified. There is no evidence of pleural effusion or pleural thickening. Heart and Mediastinum: The heart size and shape are normal. There is no mediastinal widening or masses. No hilar or mediastinal lymphadenopathy is present. Bony Thorax: The bony thorax appears intact without fractures or deformities. Soft Tissues: The soft tissues overlying the chest wall are unremarkable. IMPRESSION: Normal chest X-ray. No acute cardiopulmonary abnormalities are identified. Electronically signed by Chris Mccall 04-05-2025 02:45 AM Abdomen Ultrasound 04/06/25 08:00 Limited abdominal ultrasound INDICATION: Paracentesis request COMPARISON: CT abdomen and pelvis 04/04/2025 FINDINGS: Ultrasound imaging in all 4 abdominal quadrants was performed. A scant amount of ascites fluid was noted. This is not enough to safely perform paracentesis. IMPRESSION: Scant ascites, too small to safely perform paracentesis. Performed, dictated, and signed by Douglas Pedroza PA-C; to be co-signed by Dr. Last Christopher. Electronically signed by: Last Christopher M.D. 04/06/2025 10:12 AM Hospital Course (1) Abdominal pain: Suspected Cecal mass/Colitis --cannot rule out neoplasm DD:Lymphoma Suspected malignant ascites --CT ABD: Diffuse severe right colon wall thickening with surrounding infiltration. Masslike soft tissue density in the medial aspect of the cecum. Diffuse ascites. Extensive predominantly abdominal mesenteric and retroperitoneal lymphadenopathy. Findings are suspicious for a right colon/cecal neoplasm occluding a carcinoma or lymphoma versus severe colitis. Appendix is identified and is without evidence for acute appendicitis. --CEA antigen 0.5 --S/P Colonoscopy: Congested mucosa in the terminal ileum. Biopsied. The examination was otherwise normal on direct and retroflexion views. Internal hemorrhoids. Congested mucosa in the ascending colon and in the cecum. Biopsied. The right colon including ascending colon and cecum was edematous congested and erythematous as if there was extrinsic infiltration happening. There was also narrowed in certain areas. There was no obvious mass or ulceration noted. These findings are very suggestive of an extrinsic process and mesenteric adenopathy causing partial obstruction and findings on CT. These are highly concerning for a B-cell lymphoma. She may need an IR guided biopsy if these biopsies which were sent [place] are negative -- Pathology pending --Blood culture: Negative to date --Urine culture negative IR paracentesis attempted-- no significant ascites + Fecal occult --Stool PCR, stool for C. difficile negative Appreciate surgery, GI input Tolerating low fiber diet Discussed with interventional radiology --unable to biopsy Oncology evaluation requested Plan to discharge home today Advised to follow-up with oncology as outpatient Iron deficiency anemia No acute bleeding issues +FOBT Started on iron supplement Abnormal UA Microscopic hematuria Ruled out UTI --Urine Culture: negative Empirically received Rocephin May need Urology eval as outpatient DVT Px: SCDs for now Re: Anemia, +FOBT Code status Full code Family: Mr. Mckeon (Abdi Cat, contact #[phone]. Disposition Home Total Time Total Time Spent Total Time Spent (In Minutes): 48 minutes Discharge Plan Discharge Items Patient Disposition: Home - Self-Care Reason For Visit: ASCITES (PRIVATE RM PER REQ) Discharge Diagnosis: Cecal mass with mesenteric adenopathy Suspected lymphoma Ascites Iron deficiency anemia Condition on Discharge: Fair Activity: Per Instructions section Exercise/Sports: Wait until after follow-up appointment Non-emergency contact: Primary Care Provider and Oncologist Call non-emergency contact if: you have any medication questions, your symptoms worsen, your pain is concerning for you and you have a fever Follow-up/Referrals: Ana Alejandre [Outside Practitioners] - 04/17/25 10:20 am Eliecer Carranza MD [Physician] - (The office will call you with a follow up appointment. This office is located at the back of the hospital. ([address] [place] [address], [place], [address])) Diet: Low Fiber Addtl Attending Provider Instructions: --Follow-up with your primary care physician on 04/17/2025 at 10:20 AM as scheduled --Follow-up with your oncologist as recommended. Office will call you with appointment Seek immediate medical attention if your symptoms reoccur or worsen Please review medication list provided on discharge for any medication changes as instructed. Please call if you have any questions or problems. You can reach a [facility] hospitalist on duty at [facility] 24 hours a day by calling [phone] Pending Studies at Discharge: Yes Studies:: Cecal mass pathology Stand-Alone Forms: [facility], Smoking Cessation Medications and DC Order Prescriptions: New ferrous sulfate 325 mg (65 mg iron) Tablet,Delayed Release (Dr/Ec) 325 mg PO QAM Qty: 30 0RF oxycodone 5 mg Tablet 5 mg PO Q8H PRN (Reason: pain) Qty: 20 0RF ondansetron HCl 4 mg tablet 4 mg PO Q8H PRN (Reason: nausea and vomiting) 7 Days Qty: 30 0RF Discharge Orders: Discharge Order (Routine); Ordered 04/09/25 Ordered By: Keith Zheng Admission Data Admit Date/Time: 04/05/25 01:26 Attending Provider: Keith Zheng Admit Provider: Jaspal Hummel Primary Care Provider: PCP,NO Other Providers: Arjun Martinez; Jaspal Hummel; Rakel Callaway; Christopher Husain; Huma Root; Yamilex Mariano; Dixie Mayer; Laly Luevano; José Espitia; Radha Rowe; Raymundo Garcia; Caio Gutierrez S; Jacquelyn Johnson; Sylwia Trevizo; Ana Nick; Ju Deng; Judie Pagan; Edmund Worley; Malachi Swartz; Alexandra Castillo; Tyson Kurtz Jr; Moi Santillan; Geovany Rice; Ken Schmid; Jose Marr; Portia Whitt; Miguel Segal I; Love Nolasco; Aj Castellanos; John Ceja; Florian Samano; Shun Sanchez; Rosa Elena Akers; Ines Herring; Darion Dorsey; Eliecer Carranza; Selene Baugh; Nelson Gutierrez; Allen Irwin; Amparo Leavitt; [facility],No Attending
[2025-04-09 11:53] VITALS: BP 116/74; PULSE 69
--- NOTE | 2025-04-09 12:34 | Gastroenterology Progress Note ---
Date of Service April 09, 2025 Assessment & Plan (1) Mass of cecum: (2) Abdominal pain: Plan 59yo [place] female with abdominal pain x 1 month with cecal mass, adenopathy and ascites. Hgb improved today at 10.9g/dl. Stool PCR and C.diff negative. Unable to tap ascites d/t low volume. See today for follow up of colonoscopy results. (1) Cecal Mass with mesenteric adenopathy. - CEA levels 0.5 - normal. - Colonoscopy 04/07/25 - No obvious mass or ulceration. Areas of narrowing noted, but likely from extrinsic source. Biopsies obtained but are suspected to be non-diagnostic. Path is pending at this time. - Recommend f/u with IR for biopsy with Oncology f/u for concern of lymphoma. - Reviewed case with hospitalist. Oncology has been consulted and is going to follow up urgently in outpatient to assist in arranging biopsy of this. I also reviewed potential areas for treatment with the family. Understanding voiced. - Thank you for allowing us to participate in the care of this patient. Please call with any acute changes, questions or concerns. Please see addendum below with additional recommendation from my supervising physician. Admission and Anticipated Discharge Date Admission Date: April 05, 2025 Supervising Physician Co-Signing Physician Notes I personally saw and examined the patient. I have reviewed the chart and agree with the documentation provided by the CLINICAL INFORMATICS SPECIALIST including discussion about the assessment, treatment and plan. Briefly, the patient's right colon and TI biopsies are pending. Per path, initial biopsies suggest heamtolymphoid malignancy but multiple special stains are all pending. Having a biopsy of the mesenteric lymphadenopathy would likely be ideal because it will give us enough for diagnosis with certainty as well as characterization. She will follow-up with oncology and IR. GI will sign off please call us with any questions. Subjective 59yo Mandarin speaking female is seen today for abdominal discomfort x 1 month with cecal mass and ascites on imaging. History assisted from family. She reported increased abdominal discomfort with sensation of constipation x 1 month. This progressed in severity leading to a ER visit. CT revealed a cecal mass with mesenteric adenopathy and ascites. Underwent colonoscopy 04/07/25 with biopsies obtained for further evaluation. However no obvious cecal mass was noted at stricture point. History concerning for lymphoma and it was recommended that she undergo further evaluation with Oncology and IR for LN biopsies. Seen today on rounds. Today she has no changes or concerns. Biopsies have not yet returned. She plans to be discharged today for outpatient arrangement with LN guided biopsy at tertiary center. She denies any weight loss, hematemesis, abdominal pain, melena or hematochezia. Family history - Negative for Colorectal CA, IBD or celiac disease. Social History - No tobacco, alcohol or drug use. Review of Systems Review of Systems: See HPI Physical Exam Physical Exam: Constitutional: NAD. Alert. Answering questions appropriately. Respiratory: Breathing is even, non-labored. Lungs vora are clear to auscultation anteriorly. Cardiovascular: Regular Rate and Rhythm, no murmurs, rubs or gallops appreciated. Gastrointestinal (Abdomen): Normoactive bowel sounds x4, soft, non-distended, non-tender. Musculoskeletal: Lying in bed comfortably. No peripheral edema. Results & Data Results & Data Vital Signs (Past 12 Hours) Vital Signs Temp Pulse Pulse Resp BP BP Pulse Ox 04/09/25 11:52 99.0 F 69 92 H 19 106/70 116/74 94 04/09/25 07:06 99.0 F 92 H 19 106/70 94 O2 Del Method 04/09/25 11:52 04/09/25 07:06 Room Air PG Care Time/CCT Total # of Minutes Spent Total Time Spent with Patient: Total time spent is greater than 50% in coordination of care (as documented) at patient's floor/unit and/or counseling patient: Coding Level of Care Code 24770 SUB INP/OBS CARE 2/35MIN Diagnoses Mass of cecum K63.89 Abdominal pain R10.9
[2025-04-10] MEDS ORDERED: FERROUS SULFATE 325 MG TAB PO SCH (09:00)
--- NOTE | 2025-04-10 13:18 | Coding Query ---
To promote full compliance with coding requirements relating to patient care, provider participation is requested in all cases of fish hatchery inspector uncertainty. Please assist us with the question(s) below: Coding Question(s): The diagnosis below was documented in the H&P then subsequently fell off all further documentation. Please indicate if it is still a possible diagnosis or ruled out. Physician's Response(s): SEPSIS ( ) Diagnosed and POA ( ) Diagnosed and not POA (x) Ruled out ( ) Other (please specify) MTDD
== END 2025-04-09 12:59 | disposition home or self-care (01) | DRG 841 ==
LOC: ED 21:32 → 3W 04-05 01:26
DX: K64.8 Other hemorrhoids; R73.9 Hyperglycemia, unspecified; R31.29 Other microscopic hematuria; D50.9 Iron deficiency anemia, unspecified; C85.13 Unspecified B-cell lymphoma, intra-abdominal lymph nodes; R19.7 Diarrhea, unspecified; R18.0 Malignant ascites